=== PATIENT | female | born 1955 | race Hispanic/Latino ===

== ENCOUNTER 2018-04-11 20:06 | Inpatient (IN) | payer BC ==
[2018-04-11 20:24] VITALS: BMI 28.6
--- NOTE | 2018-04-11 20:38 | ED PDOC ---
Arrival/HPI - General Chief Complaint: Lower Extremity Problem/Injury Time Seen by Provider: 04/11/18 20:09 Historian: Patient - History of Present Illness Narrative History of Present Illness (Text): 04/11/18 20:37 Luz Elena Huerta is a 63 year old female, whose past medical history includes breast cancer s/p right breast mastectomy and PE, who presents to the ED complaining of right lower extremity swelling. Patient reports she recently had US of Duplex Lower Extremities performed earlier today, ordered by her canal driver for right lower extremity swelling she developed and noted to have an extensive right lower extremity DVT. Patient was advised to come to the ED for further evaluation. Patient states she is still experiencing right lower extremity swelling with some calf/posterior thigh pain. Patient denies any f ever, chills, chest pain, shortness of breath, back pain, headache, dizziness, or any other complaints. Patient has a family history of factor 5 leiden in her father and sister. Tenter: Dr. Landry Symptom Onset: Gradual Symptom Course: Unchanged Activities at Onset: Light Context: Home Past Medical History - Provider Review Nursing Documentation Reviewed: Yes - Infectious Disease Hx of Infectious Diseases: None - Reproductive Menopause: Yes - Cardiac Hx Pacemaker: No - Pulmonary Hx Sleep Apnea: Yes - Neurological Hx Paralysis: No - Hematological/Oncological Hx Blood Transfusions: No - Musculoskeletal/Rheumatological Hx Musculoskeletal Disorders: No - Gastrointestinal Hx Gastroesophageal Reflux: Yes - Psychiatric Hx Depression: Yes Hx Emotional Abuse: No Hx Physical Abuse: No Hx Substance Use: No - Surgical History Hx Mastectomy: Yes (right) Hx Tonsillectomy: Yes - Anesthesia Hx Anesthesia: Yes Hx Anesthesia Reactions: Yes (ITCHING AFTER MASTECTOMY) Hx Malignant Hyperthermia: No - Suicidal Assessment Feels Threatened In Home Enviroment: No Family/Social History - Physician Review Nursing Documentation Reviewed: Yes Family/Social History: Blood Clots Smoking Status: Former Smoker Hx Alcohol Use: Yes Frequency of alcohol use: Socially Hx Substance Use: No Allergies/Home Meds Allergies/Adverse Reactions: Allergies almonds Allergy (Uncoded 04/11/18 20:23) ITCHING Home Medications: Home Meds Medication Instructions Recorded Confirmed Escitalopram [Lexapro] 20 mg PO DAILY 02/27/14 04/12/18 Omeprazole 40 mg PO DAILY 02/27/14 04/11/18 Cholecalciferol [Vitamin D 1000 IU] 1,000 intlu PO DAILY 04/12/18 04/12/18 Review of Systems - Physician Review All systems were reviewed & negative as marked: Yes - Review of Systems Constitutional: Normal. absent: Fevers Eyes: Normal ENT: Normal Respiratory: Normal. absent: SOB, Cough Cardiovascular: Calf Pain. absent: Chest Pain Gastrointestinal: Normal. absent: Abdominal Pain, Diarrhea, Nausea, Vomiting Genitourinary Female: Normal. absent: Dysuria, Frequency, Hematuria, Urine Output Changes Musculoskeletal: Other (+right lower extremity swelling). absent: Back Pain, Neck Pain Skin: Normal. absent: Rash Neurological: Normal. absent: Headache, Dizziness Endocrine: Normal Hemo/Lymphatic: Normal Psychiatric: Normal Physical Exam Vital Signs Reviewed: Yes Vital Signs Temp Pulse Resp BP Pulse Ox 04/11/18 20:24 98.2 F 87 18 119/72 97 Temperature: Afebrile Blood Pressure: Normal Pulse: Regular Respiratory Rate: Normal Appearance: Positive for: Well-Appearing, Non-Toxic, Comfortable Pain Distress: None Mental Status: Positive for: Alert and Oriented X 3 - Systems Exam Head: Present: Atraumatic, Normocephalic Pupils: Present: PERRL Extroacular Muscles: Present: EOMI Conjunctiva: Present: Normal Mouth: Present: Moist Mucous Membranes Neck: Present: Normal Range of Motion Respiratory/Chest: Present: Clear to Auscultation, Good Air Exchange. No: Respiratory Distress, Accessory Muscle Use Cardiovascular: Present: Regular Rate and Rhythm, Normal S1, S2. No: Murmurs Abdomen: No: Tenderness, Distention, Peritoneal Signs Back: Present: Normal Inspection Upper Extremity: Present: Normal Inspection. No: Cyanosis, Edema Lower Extremity: Present: Normal ROM, Laura's Sign (RLE Laura's sign), Swelling (Swelling to RLE), Neurovascularly Intact. No: Edema, Erythema, Deformity, T emperature Abnormalties Neurological: Present: GCS=15, CN II-XII Intact, Speech Normal Skin: Present: Warm, Dry, Normal Color. No: Rashes Psychiatric: Present: Alert, Oriented x 3, Normal Insight, Normal Concentration Medical Decision Making ED Course and Treatment: 04/11/18 20:37 Impression: 63 year old female complaining of right lower extremity swelling with some right calf/posterior thigh pain. Pt had US Duplex Lower Extremities positive for right DVT earlier today. Plan: -- CT Chest, Abdomen, and Pelvis with IV contrast -- US Pelvis -- EKG -- Labs, troponin -- Heparin -- Reassess and disposition. Progress Notes: Case discussed with Dr. Landry, who is aware and agrees with plan. Requests pt be admitted and receive Heparin. Pt will be admitted to [facility] for DVT under Dr. Lantigua's service. 04/11/18 22:36 Reviewed EKG, NSR at 77 bpm. Non-specific T wave changes. 04/12/18 01:06 CTA Chest: Bilateral lower lobe segmental branches pulmonary emboli. Normal enhancement of the main pulmonary artery and right and left pulmonary arteries. Normal enhancement of the remaining bilateral peripheral pulmonary arteries. There is no other demonstrated pulmonary embolism. Normal thoracic aorta and visualized great vessels. There is no demonstrated aortic dissection. Normal heart and pericardium. Normal mediastinum. Normal hilar regions. Normal visualized trachea and bronchi. The lungs are well expanded. Normal pulmonary parenchyma. Normal pleura. Normal chest wall structures. Normal osseous structures. Normal visualized upper abdomen. Right breast prosthesis is noted. IMPRESSION: Bilateral lower lobe segmental branches pulmonary emboli. Electronically signed on Apr 12, 2018 1:00:33 AM EST by: Adan Max M.D., Certified by PETRONA, SABRINA, Neuroradiology 04/12/18 01:19 CT Abdomen and Pelvis: The liver contains a few scattered well-defined hypodense, probably benign lesions with the largest measuring 1.3 cm. There is no intra or extrahepatic biliary ductal dilatation. The spleen is normal. The gallbladder is within normal limits. The pancreas is of normal contour and attenuation characteristics. There is no evidence of adrenal mass. Both kidneys demonstrate prompt and equal nephrograms. The kidneys are normal in size, shape and configuration. There is no evidence of renal or ureteral mass. No renal or ureteral calculi are identified. There is no hydroureter or hydronephrosis. No evidence for appendicitis. There is no bowel wall thickening. No evidence for small or large bowel obstruction. There is no evidence of abdominal ascites or lymphadenopathy. Uncomplicated colonic diverticulosis. There is no evidence of intrinsic or extrinsic bladder mass. There is no pelvic ascites or lymphadenopathy. Intrauterine device is noted. 2.5 cm calcified uterine fibroid is seen. Images of the lung bases show no evidence of pleural or parenchymal mass. There are no pleural effusions. The bony structures are free of lytic or blastic lesions. Fat containing umbilical hernia without incarceration. IMPRESSION: No evidence of acute abdominal or pelvic pathology. Electronically signed on Apr 12, 2018 1:16:30 AM EST by: Adan Max M.D., Certified by ABR, MSK, Neuroradiology - Lab Interpretations I have reviewed the lab results: Yes - RAD Interpretation Radiology Orders: 04/11/18 20:33 CHEST,ABD,PEL W/IV CONT ONLY [CT] Stat Pelvis [PELVIS ULTRASOUND] [US] Routine Puppet Master: Radiologist - EKG Interpretation Interpreted by ED Physician: Yes Type: 12 lead EKG - Medication Orders Current Medication Orders: Heparin Sodium/Sodium Chloride (Heparin 76923 Units/250ml 1/2 Normal Saline) 25,000 units in 250 mls @ 14.941 mls/hr IV .[id number] PRN; Protocol PRN Reason: ADJUST RATE PER PROTOCOL Discontinued Medications Heparin Sodium (Porcine) (Heparin) 6,600 units 80 units/kg (6600 units) IV ONCE ONE; Protocol Stop: 04/11/18 20:27 - Scribe Statement The provider has reviewed the documentation as recorded by the Scribe Aure Ram All medical record entries made by the Scribe were at my direction and personally dictated by me. I have reviewed the chart and agree that the record accurately reflects my personal performance of the history, physical exam, medical decision making, and the department course for this patient. I have also personally directed, reviewed, and agree with the discharge instructions and disposition. Disposition/Present on Arrival - Present on Arrival Any Indicators Present on Arrival: No History of DVT/PE: No History of Uncontrolled Diabetes: No Urinary Catheter: No History of Decub. Ulcer: No History Surgical Site Infection Following: None - Disposition Have Diagnosis and Disposition been Completed?: Yes Diagnosis: Bilateral pulmonary embolism, Deep vein blood clot of right lower extremity Disposition: HOSPITALIZED Disposition Time: 20:40 Condition: FAIR
[2018-04-11 21:08] LABS: ALB/GLOB RATIO 1.3 (1.1-1.8); ALBUMIN 4.1 g/dL (3.0-4.8); ALT/SGPT 33 U/L (7-56); AST/SGOT 29 U/L (14-36); BLOOD UREA NITROGEN 13 mg/dL (7-21); CALCIUM 9.3 mg/dL (8.4-10.5); GFR NON-AFRICAN AMERICAN > 60
[2018-04-11 21:12] LABS: INR 1.17; PARTIAL THROMBOPLASTIN TIME 25.8 Seconds (25.1-36.5); PROTHROMBIN TIME 13.4 SECONDS (9.4-12.5)
[2018-04-11 21:15] LABS: BASO # 0.05 K/mm3 (0.0-2.0); BASO % 0.7 % (0.0-3.0); EOS # 0.4 (0.0-0.7); EOS % 5.9 % (1.5-5.0); GRAN # 4.7 (1.4-6.5); GRAN % 64.5 % (50.0-68.0); HEMOGLOBIN 13.7 g/dL (12.0-16.0); LYMPH # 1.5 (1.2-3.4); LYMPH % 20.5 % (22.0-35.0); MEAN CELL VOLUME 91.1 fl (80.0-105.0); MEAN CORPUSCULAR HEMOGLOBIN 31.3 pg (25.0-35.0); MEAN CORPUSCULAR HGB CONC 34.3 g/dl (31.0-37.0); MEAN PLATELET VOLUME 9.9 fl (7.0-11.0); MONO # 0.6 (0.1-0.6); MONO % 8.4 % (1.0-6.0); RBC 4.38 10^6/uL (3.5-6.1); RED CELL DISTRIBUTION WIDTH 12.8 % (11.5-14.5); WHITE BLOOD COUNT 7.3 10^3/uL (4.5-11.0)
[2018-04-11 21:20] LABS: TROPONIN I < 0.01 ng/mL
[2018-04-11] MEDS: Heparin25000 units/250ml 1/2NS 25,000 UNITS/250 ML BAG IV PRN (21:47)
[2018-04-11 23:56] LABS: URINE BILIRUBIN NEGATIVE (NEGATIVE); URINE BLOOD NEGATIVE (NEGATIVE); URINE GLUCOSE (UA) NEGATIVE (NEGATIVE); URINE LEUKOCYTE ESTERASE TRACE Leu/uL (NEGATIVE); URINE PROTEIN NEGATIVE mg/dL (<30 mg/dL); URINE UROBILINOGEN 0.2 E.U./dL (<1 E.U./dL)
[2018-04-12 00:09] LABS: URINE APPEARANCE SL CLOUDY (CLEAR); URINE COLOR YELLOW (YELLOW)
[2018-04-12 01:11] LABS: URINE RBC NEGATIVE /hpf (0-2); URINE WBC 0 - 2 /hpf (0-6)
[2018-04-12] MEDS ORDERED: Influenza Vaccine 60 mcg/0.5 mL SYR (4YR UP) IM ONE (01:11)
[2018-04-12] MEDS ORDERED: Pneumococcal 23-Valent Vaccine IM ONE (01:11)
[2018-04-12 01:12] LABS: URINE BACTERIA FEW (NEG)
--- NOTE | 2018-04-12 03:41 | CP.PCM.CON ---
<Eric Borrero - Last Filed: 04/12/18 08:26> History of Present Illness - History of Present Illness History of Present Illness: Eric Borrero PGY-1 ICU Consult Note for Dr. Ramsey: Pt is a 63 yo F with pmhx of breast cancer s/p right breast mastectomy, DVTs and PE, who presents to the ED complaining of right lower extremity swelling. ICU is consulted for close management of PE found on CT. Pt reports she recently had Duplex US of LE performed earlier today, at her hematologists clinic for right lower extremity swelling she developed. She was noted to have an extensive right lower extremity DVT. Patient was advised to come to the ED for further evaluation. Patient states she is still experiencing right lower extremity swelling with some calf/posterior thigh pain. She states that she noticed this 2 days ago and noticed that her R leg had looked more swollen. 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 Pt also admits to a family hx of Factor V Lieden in her father and sister, but pt states that she has tested negative in the past for it. Pt at this time states that she has no acute complaints, or pain and is only concerned about the finding of blood clots in her lungs. Pt denies any fever, chills, chest pain, palpitations pleuritic chest pain, shortness of breath, dyspnea on exertion, back pain, headache, lightheadedness, dizziness, weakness, numbness, tingling, dysuria, heamturia, n/v, constipation or diarrhea. Pmhx: breast cancer s/p right breast mastectomy, DVTs and PE Pshx: mastectomy, tonsillectomy Meds: Lexepro 20 QD, Protonix 40 All: NKDA Soc: Quit smoking 30 years ago, social etoh use, denies illicit drug use Fam: Mom: breast ca, Sister: Breast ca, Factor V lieden Dad: Factor V lieden Review of Systems - Review of Systems Review of Systems: 12 point ROS reviewed and negative except for noted in HPI above. Past Patient History - Infectious Disease Hx of Infectious Diseases: None - Past Social History Smoking Status: Former Smoker - CARDIAC Hx Pacemaker: No - PULMONARY Hx Sleep Apnea: Yes - NEUROLOGICAL Hx Paralysis: No - HEMATOLOGICAL/ONCOLOGICAL Hx Blood Transfusions: No - MUSCULOSKELETAL/RHEUMATOLOGICAL Hx Musculoskeletal Disorders: No - GASTROINTESTINAL Hx Gastroesophageal Reflux: Yes - PSYCHIATRIC Hx Depression: Yes Hx Emotional Abuse: No Hx Physical Abuse: No Hx Substance Use: No - SURGICAL HISTORY Hx Mastectomy: Yes (right) Hx Tonsillectomy: Yes - ANESTHESIA Hx Anesthesia: Yes Hx Anesthesia Reactions: Yes (ITCHING AFTER MASTECTOMY) Hx Malignant Hyperthermia: No Meds Allergies/Adverse Reactions: Allergies Allergy/AdvReac Type Severity Reaction Status Date / Time almonds Allergy ITCHING Uncoded 04/11/18 20:23 - Medications Medications: Current Medications Acetaminophen (Tylenol 325mg Tab) 650 mg PO Q4H PRN PRN Reason: Pain, Mild (1-3) Heparin Sodium/Sodium Chloride (Heparin 61186 Units/250ml 1/2 Normal Saline) 25,000 units in 250 mls @ 14.941 mls/hr IV .[id number] PRN; Protocol PRN Reason: ADJUST RATE PER PROTOCOL Last Admin: 04/11/18 21:47 Dose: 18 units/kg/hr, 14.941 mls/hr Physical Exam - Constitutional Appears: Well, Non-toxic, No Acute Distress - Head Exam Head Exam: ATRAUMATIC, NORMAL INSPECTION, NORMOCEPHALIC - Eye Exam Eye Exam: EOMI, Normal appearance Pupil Exam: NORMAL ACCOMODATION - Respiratory Exam Respiratory Exam: Clear to Auscultation Bilateral, NORMAL BREATHING PATTERN. absent: Accessory Muscle Use, Decreased Breath Sounds, Rales, Rhonchi, Wheezes, Respiratory Distress, Stridor - Cardiovascular Exam Cardiovascular Exam: RRR, +S1, +S2. absent: Gallop, Rubs, Systolic Murmur - GI/Abdominal Exam GI & Abdominal Exam: Normal Bowel Sounds, Soft. absent: Tenderness - Extremities Exam Extremities exam: Positive for: normal inspection. Negative for: calf tenderness, tenderness - Back Exam Back exam: NORMAL INSPECTION. absent: CVA tenderness (L), CVA tenderness (R) - Neurological Exam Neurological exam: Alert, Oriented x3 - Psychiatric Exam Psychiatric exam: Normal Affect, Normal Mood - Skin Skin Exam: Dry, Intact, Normal Color, Warm Results - Vital Signs Recent Vital Signs: Last Vital Signs Temp 98.5 F 04/12/18 00:53 Pulse 72 04/12/18 00:53 Resp 20 04/12/18 00:53 BP 107/47 L 04/12/18 00:53 Pulse Ox 98 04/12/18 01:10 - Labs Result Diagrams: 04/11/18 20:51 04/11/18 20:51 Labs: Laboratory Results - last 24 hr 04/11/18 04/11/18 04/11/18 20:51 20:51 20:51 WBC 7.3 RBC 4.38 Hgb 13.7 Hct 39.9 MCV 91.1 MCH 31.3 MCHC 34.3 RDW 12.8 Plt Count 257 MPV 9.9 Gran % 64.5 Lymph % (Auto) 20.5 L [place] % (Auto) 8.4 H Eos % (Auto) 5.9 H Baso % (Auto) 0.7 Gran # 4.70 Lymph # (Auto) 1.5 [place] # (Auto) 0.6 Eos # (Auto) 0.4 Baso # (Auto) 0.05 PT 13.4 H INR 1.17 APTT 25.8 Sodium 136 Potassium 3.7 Chloride 103 Carbon Dioxide 23 Anion Gap 14 BUN 13 Creatinine 0.9 Est GFR ( Amer) > 60 Est GFR (Non-Af Amer) > 60 Random Glucose 139 H Calcium 9.3 Total Bilirubin 0.7 AST 29 ALT 33 Alkaline Phosphatase 69 Troponin I < 0.01 Total Protein 7.2 Albumin 4.1 Globulin 3.2 Albumin/Globulin Ratio 1.3 Urine Color Urine Appearance Urine pH Ur Specific [place] Urine Protein Urine Glucose (UA) Urine Ketones Urine Blood Urine Nitrate Urine Bilirubin Urine Urobilinogen Ur Leukocyte Esterase Urine RBC Urine WBC Ur Epithelial Cells Urine Bacteria Urine Other 04/11/18 22:59 WBC RBC Hgb Hct MCV MCH MCHC RDW Plt Count MPV Gran % Lymph % (Auto) [place] % (Auto) Eos % (Auto) Baso % (Auto) Gran # Lymph # (Auto) [place] # (Auto) Eos # (Auto) Baso # (Auto) PT INR APTT Sodium Potassium Chloride Carbon Dioxide Anion Gap BUN Creatinine Est GFR ( Amer) Est GFR (Non-Af Amer) Random Glucose Calcium Total Bilirubin AST ALT Alkaline Phosphatase Troponin I Total Protein Albumin Globulin Albumin/Globulin Ratio Urine Color Yellow Urine Appearance Sl cloudy Urine pH 6.0 Ur Specific [place] 1.025 Urine Protein Negative Urine Glucose (UA) Negative Urine Ketones Negative Urine Blood Negative Urine Nitrate Negative Urine Bilirubin Negative Urine Urobilinogen 0.2 Ur Leukocyte Esterase Trace H Urine RBC Negative Urine WBC 0 - 2 Ur Epithelial Cells 6 - 8 Urine Bacteria Few Urine Other Mucus Assessment & Plan - Assessment and Plan (Free Text) Assessment: t is a 63 yo F with pmhx of breast cancer s/p right breast mastectomy, DVTs and PE. Noted to have a new PE on CT, f/u official read. Heparin drip started and transfered to ICU for close monitoring. Plan: 1. Provoked DVT 2/2 hx of breast ca undergoing treatment - Pt is clinically asymptomatic at this time - Started on Heparin drip - f/u factor V leiden - Will bridge to PO meds - Will continue to monitor for signs of bleeding - Continue to monitor pts presentation. 2. Hx of breast ca s/p mastectomy: - Heme/onc on board 3. Ppx: - GI: omeprazole <Edmond Ramsey - Last Filed: 04/13/18 20:40> Meds - Medications Medications: Current Medications Acetaminophen (Tylenol 325mg Tab) 650 mg PO Q4H PRN PRN Reason: Pain, Mild (1-3) Albuterol/Ipratropium (Duoneb 3 Mg/0.5 Mg (3 Ml) Ud) 3 ml IH [id number] PRN PRN Reason: Cough and congestion Anastrozole (Arimidex 1 Mg Tab) 1 mg PO DAILY [facility] Last Admin: 04/13/18 09:41 Dose: 1 mg Benzocaine/Menthol (Cepacol Sore Throat) 1 charline MT Q2H PRN PRN Reason: Cough Benzonatate (Tessalon Perles) 200 mg PO TID [facility] Last Admin: 04/13/18 17:15 Dose: 200 mg Escitalopram Oxalate (Lexapro) 10 mg PO DAILY [facility] Last Admin: 04/13/18 09:49 Dose: 10 mg Guaifenesin (Robitussin) 100 mg PO Q4H PRN PRN Reason: Cough Last Admin: 04/13/18 02:32 Dose: 100 mg Heparin Sodium/Sodium Chloride (Heparin 01246 Units/250ml 1/2 Normal Saline) 25,000 units in 250 mls @ 14.941 mls/hr IV .[id number] PRN; Protocol PRN Reason: ADJUST RATE PER PROTOCOL Last Admin: 04/13/18 14:52 Dose: 16 units/kg/hr, 13.281 mls/hr Lamotrigine (Lamictal) 25 mg PO DAILY [facility] Last Admin: 04/13/18 10:21 Dose: Not Given Pantoprazole Sodium (Protonix Ec Tab) 40 mg PO 0600 [facility] Last Admin: 04/13/18 05:15 Dose: 40 mg Results - Vital Signs Recent Vital Signs: Last Vital Signs Temp 98.1 F 04/13/18 18:00 Pulse 77 04/13/18 18:00 Resp 20 04/13/18 18:00 BP 101/54 L 04/13/18 18:00 Pulse Ox 96 04/13/18 18:00 - Labs Result Diagrams: 04/13/18 05:20 04/13/18 05:20 Labs: Laboratory Results - last 24 hr 04/13/18 04/13/18 04/13/18 02:25 05:20 05:20 WBC 5.7 RBC 4.22 Hgb 13.1 Hct 38.9 MCV 92.2 MCH 31.0 MCHC 33.7 RDW 12.8 Plt Count 228 MPV 9.5 Gran % 54.1 Lymph % (Auto) 32.6 [place] % (Auto) 7.0 H Eos % (Auto) 5.6 H Baso % (Auto) 0.7 Gran # 3.07 Lymph # (Auto) 1.9 [place] # (Auto) 0.4 Eos # (Auto) 0.3 Baso # (Auto) 0.04 APTT 61.8 H Sodium 140 Potassium 4.0 Chloride 109 H Carbon Dioxide 28 Anion Gap 7 L BUN 12 Creatinine 0.8 Est GFR ( Amer) > 60 Est GFR (Non-Af Amer) > 60 Random Glucose 100 Calcium 8.9 Total Bilirubin 0.5 AST 22 ALT 31 Alkaline Phosphatase 64 Total Protein 6.3 Albumin 3.5 Globulin 2.8 Albumin/Globulin Ratio 1.2 Attending/Attestation - Attestation I have personally seen and examined this patient.: Yes I have fully participated in the care of the patient.: Yes I have reviewed all pertinent clinical information: Yes Notes (Text): 04/13/18 20:39 Patient was seen when she was in the ER. Agree with documentation by resident physician.
[2018-04-12] MEDS: Pantoprazole 40 mg EC Tab PO SCH (05:52)
[2018-04-12 06:52] LABS: BASO # 0.03 K/mm3 (0.0-2.0); BASO % 0.4 % (0.0-3.0); EOS # 0.4 (0.0-0.7); EOS % 6.3 % (1.5-5.0); GRAN # 3.78 (1.4-6.5); GRAN % 55.2 % (50.0-68.0); HEMOGLOBIN 12.3 g/dL (12.0-16.0); LYMPH # 2.1 (1.2-3.4); LYMPH % 30.7 % (22.0-35.0); MEAN CELL VOLUME 91.5 fl (80.0-105.0); MEAN CORPUSCULAR HEMOGLOBIN 30.6 pg (25.0-35.0); MEAN CORPUSCULAR HGB CONC 33.4 g/dl (31.0-37.0); MEAN PLATELET VOLUME 9.8 fl (7.0-11.0); MONO # 0.5 (0.1-0.6); MONO % 7.4 % (1.0-6.0); RBC 4.02 10^6/uL (3.5-6.1); RED CELL DISTRIBUTION WIDTH 12.9 % (11.5-14.5); WHITE BLOOD COUNT 6.9 10^3/uL (4.5-11.0)
[2018-04-12 07:50] LABS: ALB/GLOB RATIO 1.2 (1.1-1.8); ALBUMIN 3.2 g/dL (3.0-4.8); ALT/SGPT 30 U/L (7-56); AST/SGOT 21 U/L (14-36); BLOOD UREA NITROGEN 13 mg/dL (7-21); CALCIUM 8.4 mg/dL (8.4-10.5); GFR NON-AFRICAN AMERICAN > 60
--- NOTE | 2018-04-12 09:08 | CP.PCM.HP ---
History of Present Illness - History of Present Illness History of Present Illness: Rayshawn Marquez Internal Medicine Resident- H&P on Behalf of Heme/Onc Subjective: CC: Right lower extremity swelling HPI: Patient is a 63 year old female with a pmhx of breast cancer s/p right breast mastectomy, DVTs and PE who was admitted for evaluation and treatment of right lower extremity swelling. States the swelling began 3 days ago with no specific provoking event. Admits to localized discomfort in the aforementioned limb. Offers no new complaints at this time. Admits to baseline nonproductive cough. Denies fever, chills, chest pain, SOB, abdominal pain, nausea, vomiting, diarrhea, constipation, and urinary symptoms. 12 Point ROS negative except as indicated in HPI Pmhx: breast cancer s/p right breast mastectomy, DVTs and PE Pshx: mastectomy, tonsillectomy Meds: Lexepro 20 QD, Protonix 40 All: NKDA Social Hx: Quit smoking 30 years ago, social etoh use, denies illicit drug use Fam: Mom: breast ca, Sister: Breast ca, Factor V lieden Dad: Factor V lieden Physical Examination: - Constitutional Appears: Well, Non-toxic, No Acute Distress - Head Exam Head Exam: ATRAUMATIC, NORMAL INSPECTION, NORMOCEPHALIC - Eye Exam Eye Exam: EOMI, Normal appearance - Respiratory Exam Respiratory Exam: Clear to Auscultation Bilateral, NORMAL BREATHING PATTERN. absent: Accessory Muscle Use, Decreased Breath Sounds, Rales, Rhonchi, Wheezes, Respiratory Distress, Stridor - Cardiovascular Exam Cardiovascular Exam: RRR, +S1, +S2. absent: Gallop, Rubs, Systolic Murmur - GI/Abdominal Exam GI & Abdominal Exam: Normal Bowel Sounds, Soft. absent: Tenderness - Extremities Exam Extremities exam: Positive for: normal inspection. Negative for: calf tenderness, tenderness - Back Exam Back exam: NORMAL INSPECTION. absent: CVA tenderness (L), CVA tenderness (R) - Neurological Exam Neurological exam: Alert, Oriented x3 - Psychiatric Exam Psychiatric exam: Normal Affect, Normal Mood - Skin Skin Exam: Dry, Intact, Normal Color, Warm Assessment and Plan: Pt is a 63 yo F with pmhx of breast cancer s/p right breast mastectomy, DVTs and PE. Noted to have a new PE on CT, f/u official read. Heparin drip started and transferred to ICU for close monitoring. Provoked DVT - 2/2 hx of breast Cancer undergoing treatment - 04/11/2018 EKG, NSR at 77 bpm. Non-specific T wave changes - 04/12/2018 CT Abdomen and Pelvis No evidence of acute abdominal or pelvic pathology - 04/12/2018 CTA Chest Bilateral lower lobe segmental branches pulmonary emboli. - continue Heparin drip - f/u factor V Leiden Hx of breast ca s/p mastectomy: - continue home anastrazole 1mg PO Daily Atypical Cough - Pulmonology consulted- PE, potentially related to cough - GI consulted- hx of GERD, potentially related to cough Ppx: - GI: omeprazole - PPX: on heparin drip Patient case discussed with and plan approved by attending physician, Dr. Landry. Present on Admission - Present on Admission Any Indicators Present on Admission: Yes Past Patient History - Infectious Disease Hx of Infectious Diseases: None - Past Social History Smoking Status: Former Smoker - CARDIAC Hx Pacemaker: No - PULMONARY Hx Sleep Apnea: Yes - NEUROLOGICAL Hx Paralysis: No - HEMATOLOGICAL/ONCOLOGICAL Hx Blood Transfusions: No - MUSCULOSKELETAL/RHEUMATOLOGICAL Hx Musculoskeletal Disorders: No - GASTROINTESTINAL Hx Gastroesophageal Reflux: Yes - PSYCHIATRIC Hx Depression: Yes Hx Emotional Abuse: No Hx Physical Abuse: No Hx Substance Use: No - SURGICAL HISTORY Hx Mastectomy: Yes (right) Hx Tonsillectomy: Yes - ANESTHESIA Hx Anesthesia: Yes Hx Anesthesia Reactions: Yes (ITCHING AFTER MASTECTOMY) Hx Malignant Hyperthermia: No Meds Allergies/Adverse Reactions: Allergies Allergy/AdvReac Type Severity Reaction Status Date / Time almonds Allergy ITCHING Uncoded 04/11/18 20:23 Results - Vital Signs Recent Vital Signs: Last Vital Signs Temp 98.5 F 04/12/18 00:53 Pulse 68 04/12/18 08:50 Resp 39 H 04/12/18 08:50 BP 105/54 L 04/12/18 08:00 Pulse Ox 94 L 04/12/18 08:50 - Labs Result Diagrams: 04/12/18 06:30 04/12/18 06:30 Labs: Laboratory Results - last 24 hr 04/11/18 04/11/18 04/11/18 20:51 20:51 20:51 WBC 7.3 RBC 4.38 Hgb 13.7 Hct 39.9 MCV 91.1 MCH 31.3 MCHC 34.3 RDW 12.8 Plt Count 257 MPV 9.9 Gran % 64.5 Lymph % (Auto) 20.5 L [place] % (Auto) 8.4 H Eos % (Auto) 5.9 H Baso % (Auto) 0.7 Gran # 4.70 Lymph # (Auto) 1.5 [place] # (Auto) 0.6 Eos # (Auto) 0.4 Baso # (Auto) 0.05 PT 13.4 H INR 1.17 APTT 25.8 Sodium 136 Potassium 3.7 Chloride 103 Carbon Dioxide 23 Anion Gap 14 BUN 13 Creatinine 0.9 Est GFR ( Amer) > 60 Est GFR (Non-Af Amer) > 60 Random Glucose 139 H Calcium 9.3 Total Bilirubin 0.7 AST 29 ALT 33 Alkaline Phosphatase 69 Troponin I < 0.01 NT-Pro-B Natriuret Pep Total Protein 7.2 Albumin 4.1 Globulin 3.2 Albumin/Globulin Ratio 1.3 Urine Color Urine Appearance Urine pH Ur Specific [place] Urine Protein Urine Glucose (UA) Urine Ketones Urine Blood Urine Nitrate Urine Bilirubin Urine Urobilinogen Ur Leukocyte Esterase Urine RBC Urine WBC Ur Epithelial Cells Urine Bacteria Urine Other 04/11/18 04/12/18 04/12/18 22:59 04:42 06:30 WBC 6.9 RBC 4.02 Hgb 12.3 Hct 36.8 MCV 91.5 MCH 30.6 MCHC 33.4 RDW 12.9 Plt Count 227 MPV 9.8 Gran % 55.2 Lymph % (Auto) 30.7 [place] % (Auto) 7.4 H Eos % (Auto) 6.3 H Baso % (Auto) 0.4 Gran # 3.78 Lymph # (Auto) 2.1 [place] # (Auto) 0.5 Eos # (Auto) 0.4 Baso # (Auto) 0.03 PT INR APTT 87.2 H Sodium Potassium Chloride Carbon Dioxide Anion Gap BUN Creatinine Est GFR ( Amer) Est GFR (Non-Af Amer) Random Glucose Calcium Total Bilirubin AST ALT Alkaline Phosphatase Troponin I NT-Pro-B Natriuret Pep Total Protein Albumin Globulin Albumin/Globulin Ratio Urine Color Yellow Urine Appearance Sl cloudy Urine pH 6.0 Ur Specific [place] 1.025 Urine Protein Negative Urine Glucose (UA) Negative Urine Ketones Negative Urine Blood Negative Urine Nitrate Negative Urine Bilirubin Negative Urine Urobilinogen 0.2 Ur Leukocyte Esterase Trace H Urine RBC Negative Urine WBC 0 - 2 Ur Epithelial Cells 6 - 8 Urine Bacteria Few Urine Other Mucus 04/12/18 04/12/18 06:30 08:17 WBC RBC Hgb Hct MCV MCH MCHC RDW Plt Count MPV Gran % Lymph % (Auto) [place] % (Auto) Eos % (Auto) Baso % (Auto) Gran # Lymph # (Auto) [place] # (Auto) Eos # (Auto) Baso # (Auto) PT INR APTT Sodium 135 Potassium 3.5 L Chloride 104 Carbon Dioxide 23 Anion Gap 11 BUN 13 Creatinine 0.8 Est GFR ( Amer) > 60 Est GFR (Non-Af Amer) > 60 Random Glucose 121 H Calcium 8.4 Total Bilirubin 0.5 AST 21 ALT 30 Alkaline Phosphatase 55 Troponin I NT-Pro-B Natriuret Pep 33.4 Total Protein 6.0 Albumin 3.2 Globulin 2.8 Albumin/Globulin Ratio 1.2 Urine Color Urine Appearance Urine pH Ur Specific [place] Urine Protein Urine Glucose (UA) Urine Ketones Urine Blood Urine Nitrate Urine Bilirubin Urine Urobilinogen Ur Leukocyte Esterase Urine RBC Urine WBC Ur Epithelial Cells Urine Bacteria Urine Other
--- NOTE | 2018-04-12 09:29 | CT ---
Date of service: 04/11/2018 PROCEDURE: CT Chest with contrast (Pulmonary Angiogram) HISTORY: dvt leg COMPARISON: 11/22/2017. CT thorax TECHNIQUE: Axial computed tomography images were obtained of the chest in the pulmonary arterial phase of enhancement. Coronal and sagittal reformatted images were created and reviewed. Intravenous contrast dose: 100 cc Visipaque 320. Mean Hounsfield value in the main pulmonary artery: 317.35 Radiation dose: Total exam DLP = 480.25 mGy-cm. This CT exam was performed using one or more of the following dose reduction techniques: Automated exposure control, adjustment of the mA and/or kV according to patient size, and/or use of iterative reconstruction technique. FINDINGS: PULMONARY ARTERIES: Lower lobe pulmonary emboli bilaterally. In addition, there is more central emboli distal aspect of the left main pulmonary artery which extends into proximal branches of upper and lower lobes. Similar distribution of embolize seen on the right. AORTA: No acute findings. No thoracic aortic aneurysm. No atherosclerotic calcification or mural plaque present. LUNGS: Unremarkable. No nodule, mass or pulmonary consolidation. PLEURAL SPACES: Unremarkable. No effusion or pneumothorax. HEART: Unremarkable. No cardiomegaly. No significant pericardial effusion. LYMPH NODES: No lymphadenopathy. BONES, CHEST WALL: Unremarkable. No fracture or destructive lesion hemangioma T7 vertebral body. OTHER FINDINGS: Upper abdomen: Stable hepatic cysts. Stable appearance of right breast prosthesis and right axillary surgical clips. IMPRESSION: Positive examination for acute pulmonary emboli bilaterally. Additional benign and/or incidental findings described above. Concordant results (preliminary interpretation) provided by [facility]. Procedure Completed: 23:37. Preliminary Report: Dictated and Authenticated: 01:00. Final Interpretation: 09:23. April 12, 2018
--- NOTE | 2018-04-12 09:41 | CP.CCUPN ---
<Bo Feldman - Last Filed: 04/12/18 12:49> CCU Subjective - Physician Review Subjective (Free Text): Patient seen and examined at bedside. She is alert and oriented, has no complaints. No acute events overnight. Right leg swelling is getting better. Denied SOB, chest pain, palpitations, leg pain, fever, chills. CCU Objective - Vital Signs / Intake & Output Vital Signs (Last 4 hours): Vital Signs Pulse Resp BP Pulse Ox 04/12/18 08:50 68 39 H 94 L 04/12/18 08:40 72 29 H 95 04/12/18 08:30 59 L 16 94 L 04/12/18 08:20 67 18 94 L 04/12/18 08:10 66 16 92 L 04/12/18 08:00 105/54 L 04/12/18 07:59 65 17 94 L 04/12/18 07:54 72 14 112/65 96 04/12/18 07:50 68 24 94 L 04/12/18 07:49 68 22 104/60 95 04/12/18 07:48 75 40 H 74/27 L 95 04/12/18 07:40 61 14 91 L 04/12/18 07:30 68 13 91 L 04/12/18 07:20 68 14 91 L 04/12/18 07:10 68 13 92 L 04/12/18 07:00 69 78/56 L 91 L 04/12/18 06:50 66 13 93 L 04/12/18 06:40 79 95 04/12/18 06:30 72 14 91 L 04/12/18 06:20 68 93 L 04/12/18 06:17 70 16 80/45 L 93 L 04/12/18 06:10 68 14 94 L 04/12/18 06:00 68 14 76/42 L 92 L 04/12/18 05:50 66 13 94 L 04/12/18 05:40 68 16 91 L 04/12/18 05:39 68 113/49 L Intake and Output (Last 8hrs): Intake & Output 04/11/18 04/12/18 04/12/18 22:59 06:59 14:59 Intake Total 470 Output Total 400 Balance 70 Weight 183 lb Intake: IV 270 heparin 150 Oral 200 Output: Urine 400 Urine, Voided 400 - Physical Exam Head: Positive for: Atraumatic, Normocephalic Pupils: Positive for: PERRL Extroacular Muscles: Positive for: EOMI Conjunctiva: Positive for: Normal Mouth: Positive for: Moist Mucous Membranes Neck: Positive for: Normal Range of Motion Respiratory/Chest: Positive for: Clear to Auscultation, Good Air Exchange. Negative for: Respiratory Distress, Accessory Muscle Use Cardiovascular: Positive for: Regular Rate and Rhythm, Normal S1, S2. Negative for: Murmurs Abdomen: Negative for: Tenderness, Distention, Peritoneal Signs Back: Positive for: Normal Inspection Upper Extremity: Positive for: Normal Inspection. Negative for: Cyanosis, Edema Lower Extremity: Positive for: Normal ROM, Laura's Sign (RLE Laura's sign), Swelling (Swelling to RLE. improving), Neurovascularly Intact. Negative for: Edema, Erythema, Deformity, Temperature Abnormalties Neurological: Positive for: GCS=15, CN II-XII Intact, Speech Normal Skin: Positive for: Warm, Dry, Normal Color. Negative for: Rashes Psychiatric: Positive for: Alert, Oriented x 3, Normal Insight, Normal Concentration - Medications Active Medications: Active Medications Generic Name Dose Route Start Last Admin Trade Name Freq PRN Reason Stop Dose Admin Acetaminophen 650 mg 04/12/18 00:48 Tylenol 325mg Tab PO Q4H PRN Pain, Mild (1-3) Escitalopram Oxalate 10 mg 04/12/18 10:00 Lexapro PO DAILY ARACELI Heparin Sodium/Sodium Chloride 25,000 units in 250 mls @ 14.941 mls/hr 1 06/11/17 20:26 04/12/18 06:00 Heparin 97714 Units/250ml 1/2 Normal Saline IV 16 units/kg/hr .[id number] PRN 13.281 mls/hr ADJUST RATE PER PROTOCOL Titration Protocol 18 UNITS/KG/HR Lamotrigine 25 mg 04/12/18 10:00 Lamictal PO DAILY ARACELI Pantoprazole Sodium 40 mg 04/12/18 06:00 04/12/18 05:52 Protonix Ec Tab PO 40 mg 0600 ARACELI Administration - Patient Studies Lab Studies: Lab Studies 04/12/18 04/12/18 04/12/18 Range/Units 08:17 06:30 06:30 WBC 6.9 (4.5-11.0) 10^3/uL RBC 4.02 (3.5-6.1) 10^6/uL Hgb 12.3 (12.0-16.0) g/dL Hct 36.8 (36.0-48.0) % MCV 91.5 (80.0-105.0) fl MCH 30.6 (25.0-35.0) pg MCHC 33.4 (31.0-37.0) g/dl RDW 12.9 (11.5-14.5) % Plt Count 227 (120.0-450.0) 10^3/uL MPV 9.8 (7.0-11.0) fl Gran % 55.2 (50.0-68.0) % Lymph % (Auto) 30.7 (22.0-35.0) % Wirt % (Auto) 7.4 H (1.0-6.0) % Eos % (Auto) 6.3 H (1.5-5.0) % Baso % (Auto) 0.4 (0.0-3.0) % Gran # 3.78 (1.4-6.5) Lymph # (Auto) 2.1 (1.2-3.4) Wirt # (Auto) 0.5 (0.1-0.6) Eos # (Auto) 0.4 (0.0-0.7) Baso # (Auto) 0.03 (0.0-2.0) K/mm3 PT (9.4-12.5) SECONDS INR APTT (25.1-36.5) Seconds Sodium 135 (132-148) mmol/L Potassium 3.5 L (3.6-5.0) mmol/L Chloride 104 (98-107) mmol/L Carbon Dioxide 23 (21-33) mmol/L Anion Gap 11 (10-20) BUN 13 (7-21) mg/dL Creatinine 0.8 (0.7-1.2) mg/dl Est GFR ( Amer) > 60 Est GFR (Non-Af Amer) > 60 Random Glucose 121 H (70-110) mg/dL Calcium 8.4 (8.4-10.5) mg/dL Total Bilirubin 0.5 (0.2-1.3) mg/dL AST 21 (14-36) U/L ALT 30 (7-56) U/L Alkaline Phosphatase 55 (38-126) U/L Troponin I ng/mL NT-Pro-B Natriuret Pep 33.4 (0-450) pg/mL Total Protein 6.0 (5.8-8.3) g/dL Albumin 3.2 (3.0-4.8) g/dL Globulin 2.8 gm/dL Albumin/Globulin Ratio 1.2 (1.1-1.8) Urine Color (YELLOW) Urine Appearance (CLEAR) Urine pH (4.7-8.0) Ur Specific [place] (1.005-1.035) Urine Protein (<30 mg/dL) mg/dL Urine Glucose (UA) (NEGATIVE) mg/dL Urine Ketones (NEGATIVE) mg/dL Urine Blood (NEGATIVE) Urine Nitrate (NEGATIVE) Urine Bilirubin (NEGATIVE) Urine Urobilinogen (<1 E.U./dL) E.U./dL Ur Leukocyte Esterase (NEGATIVE) Yusra/uL Urine RBC (0-2) /hpf Urine WBC (0-6) /hpf Ur Epithelial Cells (0-5) /hpf Urine Bacteria (NEG) Urine Other 04/12/18 04/11/18 04/11/18 Range/Units 04:42 22:59 20:51 WBC (4.5-11.0) 10^3/uL RBC (3.5-6.1) 10^6/uL Hgb (12.0-16.0) g/dL Hct (36.0-48.0) % MCV (80.0-105.0) fl MCH (25.0-35.0) pg MCHC (31.0-37.0) g/dl RDW (11.5-14.5) % Plt Count (120.0-450.0) 10^3/uL MPV (7.0-11.0) fl Gran % (50.0-68.0) % Lymph % (Auto) (22.0-35.0) % Wirt % (Auto) (1.0-6.0) % Eos % (Auto) (1.5-5.0) % Baso % (Auto) (0.0-3.0) % Gran # (1.4-6.5) Lymph # (Auto) (1.2-3.4) Wirt # (Auto) (0.1-0.6) Eos # (Auto) (0.0-0.7) Baso # (Auto) (0.0-2.0) K/mm3 PT (9.4-12.5) SECONDS INR APTT 87.2 H (25.1-36.5) Seconds Sodium 136 (132-148) mmol/L Potassium 3.7 (3.6-5.0) mmol/L Chloride 103 (98-107) mmol/L Carbon Dioxide 23 (21-33) mmol/L Anion Gap 14 (10-20) BUN 13 (7-21) mg/dL Creatinine 0.9 (0.7-1.2) mg/dl Est GFR ( Amer) > 60 Est GFR (Non-Af Amer) > 60 Random Glucose 139 H (70-110) mg/dL Calcium 9.3 (8.4-10.5) mg/dL Total Bilirubin 0.7 (0.2-1.3) mg/dL AST 29 (14-36) U/L ALT 33 (7-56) U/L Alkaline Phosphatase 69 (38-126) U/L Troponin I < 0.01 ng/mL NT-Pro-B Natriuret Pep (0-450) pg/mL Total Protein 7.2 (5.8-8.3) g/dL Albumin 4.1 (3.0-4.8) g/dL Globulin 3.2 gm/dL Albumin/Globulin Ratio 1.3 (1.1-1.8) Urine Color Yellow (YELLOW) Urine Appearance Sl cloudy (CLEAR) Urine pH 6.0 (4.7-8.0) Ur Specific [place] 1.025 (1.005-1.035) Urine Protein Negative (<30 mg/dL) mg/dL Urine Glucose (UA) Negative (NEGATIVE) mg/dL Urine Ketones Negative (NEGATIVE) mg/dL Urine Blood Negative (NEGATIVE) Urine Nitrate Negative (NEGATIVE) Urine Bilirubin Negative (NEGATIVE) Urine Urobilinogen 0.2 (<1 E.U./dL) E.U./dL Ur Leukocyte Esterase Trace H (NEGATIVE) Yusra/uL Urine RBC Negative (0-2) /hpf Urine WBC 0 - 2 (0-6) /hpf Ur Epithelial Cells 6 - 8 (0-5) /hpf Urine Bacteria Few (NEG) Urine Other Mucus 04/11/18 04/11/18 Range/Units 20:51 20:51 WBC 7.3 (4.5-11.0) 10^3/uL RBC 4.38 (3.5-6.1) 10^6/uL Hgb 13.7 (12.0-16.0) g/dL Hct 39.9 (36.0-48.0) % MCV 91.1 (80.0-105.0) fl MCH 31.3 (25.0-35.0) pg MCHC 34.3 (31.0-37.0) g/dl RDW 12.8 (11.5-14.5) % Plt Count 257 (120.0-450.0) 10^3/uL MPV 9.9 (7.0-11.0) fl Gran % 64.5 (50.0-68.0) % Lymph % (Auto) 20.5 L (22.0-35.0) % Wirt % (Auto) 8.4 H (1.0-6.0) % Eos % (Auto) 5.9 H (1.5-5.0) % Baso % (Auto) 0.7 (0.0-3.0) % Gran # 4.70 (1.4-6.5) Lymph # (Auto) 1.5 (1.2-3.4) Wirt # (Auto) 0.6 (0.1-0.6) Eos # (Auto) 0.4 (0.0-0.7) Baso # (Auto) 0.05 (0.0-2.0) K/mm3 PT 13.4 H (9.4-12.5) SECONDS INR 1.17 APTT 25.8 (25.1-36.5) Seconds Sodium (132-148) mmol/L Potassium (3.6-5.0) mmol/L Chloride (98-107) mmol/L Carbon Dioxide (21-33) mmol/L Anion Gap (10-20) BUN (7-21) mg/dL Creatinine (0.7-1.2) mg/dl Est GFR ( Amer) Est GFR (Non-Af Amer) Random Glucose (70-110) mg/dL Calcium (8.4-10.5) mg/dL Total Bilirubin (0.2-1.3) mg/dL AST (14-36) U/L ALT (7-56) U/L Alkaline Phosphatase (38-126) U/L Troponin I ng/mL NT-Pro-B Natriuret Pep (0-450) pg/mL Total Protein (5.8-8.3) g/dL Albumin (3.0-4.8) g/dL Globulin gm/dL Albumin/Globulin Ratio (1.1-1.8) Urine Color (YELLOW) Urine Appearance (CLEAR) Urine pH (4.7-8.0) Ur Specific [place] (1.005-1.035) Urine Protein (<30 mg/dL) mg/dL Urine Glucose (UA) (NEGATIVE) mg/dL Urine Ketones (NEGATIVE) mg/dL Urine Blood (NEGATIVE) Urine Nitrate (NEGATIVE) Urine Bilirubin (NEGATIVE) Urine Urobilinogen (<1 E.U./dL) E.U./dL Ur Leukocyte Esterase (NEGATIVE) Yusra/uL Urine RBC (0-2) /hpf Urine WBC (0-6) /hpf Ur Epithelial Cells (0-5) /hpf Urine Bacteria (NEG) Urine Other Laboratory Results - last 24 hr 04/11/18 04/11/18 04/11/18 20:51 20:51 20:51 WBC 7.3 RBC 4.38 Hgb 13.7 Hct 39.9 MCV 91.1 MCH 31.3 MCHC 34.3 RDW 12.8 Plt Count 257 MPV 9.9 Gran % 64.5 Lymph % (Auto) 20.5 L Wirt % (Auto) 8.4 H Eos % (Auto) 5.9 H Baso % (Auto) 0.7 Gran # 4.70 Lymph # (Auto) 1.5 Wirt # (Auto) 0.6 Eos # (Auto) 0.4 Baso # (Auto) 0.05 PT 13.4 H INR 1.17 APTT 25.8 Sodium 136 Potassium 3.7 Chloride 103 Carbon Dioxide 23 Anion Gap 14 BUN 13 Creatinine 0.9 Est GFR ( Amer) > 60 Est GFR (Non-Af Amer) > 60 Random Glucose 139 H Calcium 9.3 Total Bilirubin 0.7 AST 29 ALT 33 Alkaline Phosphatase 69 Troponin I < 0.01 NT-Pro-B Natriuret Pep Total Protein 7.2 Albumin 4.1 Globulin 3.2 Albumin/Globulin Ratio 1.3 Urine Color Urine Appearance Urine pH Ur Specific [place] Urine Protein Urine Glucose (UA) Urine Ketones Urine Blood Urine Nitrate Urine Bilirubin Urine Urobilinogen Ur Leukocyte Esterase Urine RBC Urine WBC Ur Epithelial Cells Urine Bacteria Urine Other 04/11/18 04/12/18 04/12/18 22:59 04:42 06:30 WBC 6.9 RBC 4.02 Hgb 12.3 Hct 36.8 MCV 91.5 MCH 30.6 MCHC 33.4 RDW 12.9 Plt Count 227 MPV 9.8 Gran % 55.2 Lymph % (Auto) 30.7 Wirt % (Auto) 7.4 H Eos % (Auto) 6.3 H Baso % (Auto) 0.4 Gran # 3.78 Lymph # (Auto) 2.1 Wirt # (Auto) 0.5 Eos # (Auto) 0.4 Baso # (Auto) 0.03 PT INR APTT 87.2 H Sodium Potassium Chloride Carbon Dioxide Anion Gap BUN Creatinine Est GFR ( Amer) Est GFR (Non-Af Amer) Random Glucose Calcium Total Bilirubin AST ALT Alkaline Phosphatase Troponin I NT-Pro-B Natriuret Pep Total Protein Albumin Globulin Albumin/Globulin Ratio Urine Color Yellow Urine Appearance Sl cloudy Urine pH 6.0 Ur Specific [place] 1.025 Urine Protein Negative Urine Glucose (UA) Negative Urine Ketones Negative Urine Blood Negative Urine Nitrate Negative Urine Bilirubin Negative Urine Urobilinogen 0.2 Ur Leukocyte Esterase Trace H Urine RBC Negative Urine WBC 0 - 2 Ur Epithelial Cells 6 - 8 Urine Bacteria Few Urine Other Mucus 04/12/18 04/12/18 06:30 08:17 WBC RBC Hgb Hct MCV MCH MCHC RDW Plt Count MPV Gran % Lymph % (Auto) Wirt % (Auto) Eos % (Auto) Baso % (Auto) Gran # Lymph # (Auto) Wirt # (Auto) Eos # (Auto) Baso # (Auto) PT INR APTT Sodium 135 Potassium 3.5 L Chloride 104 Carbon Dioxide 23 Anion Gap 11 BUN 13 Creatinine 0.8 Est GFR ( Amer) > 60 Est GFR (Non-Af Amer) > 60 Random Glucose 121 H Calcium 8.4 Total Bilirubin 0.5 AST 21 ALT 30 Alkaline Phosphatase 55 Troponin I NT-Pro-B Natriuret Pep 33.4 Total Protein 6.0 Albumin 3.2 Globulin 2.8 Albumin/Globulin Ratio 1.2 Urine Color Urine Appearance Urine pH Ur Specific [place] Urine Protein Urine Glucose (UA) Urine Ketones Urine Blood Urine Nitrate Urine Bilirubin Urine Urobilinogen Ur Leukocyte Esterase Urine RBC Urine WBC Ur Epithelial Cells Urine Bacteria Urine Other EKG/Cardiology Studies: Cardiology / EKG Studies 04/11/18 20:25 ELECTROCARDIOGRAM Stat Comment: Reason For Exam: dvt Critical Care Progress Note - Nutrition Nutrition: Nutrition Category Date Time Status Heart Healthy Diet [DIET] Diets 04/12/18 Breakfast Active Assessment/Plan - Assessment and Plan (Free Text) Assessment: 63 y/o female with PMH of breast cancer s/p right mastectomy, DVT/ PE admitted for pulmonatry embolism evident by CT chest. Clinically stable on heparin drip Plan: Neuro: -Patient awake oriented in NAD. no focal deficits -Maintain normothermia Pulm: - Patient asymptomatic, clinically stable - CT chest: b/l lower lobe segmental branch PE - h/o PE at age 19 in the setting of OCP use - Continue heparin drip - Maintain O2 sat >90% CVS: - EKG: NSR@77 non specific T wave changes - Bedside Echo did not show RV strain - LL duplex done outside showed right DVT - Consult IR for further intervention - Echo: pending - U/S aortia/IVC/iliac - Maintain MAP>65 Heme/Onc: - H/O breast cancer s/p right mastectomy. On remission. Oncologist Dr Tay - Family hx of factor V mutation. Test ordered GI: -CT A/P: no abd/pelvic pathology ID: - f/u urine culture - UA negative for nitrate, trace LE Psych: - H/O depression - Continue Lexapro 10mg daily Renal: - Maintain euvolemia - Monitor electrolytes and replete as needed - In/out 470/400 in last 24 hours Prophylaxis: - DVT PPx: Heparin - GI PPx: Protonix Heart Healthy diet Patient seen and discussed in detail with attending Dr. Francisco Feldman, DO, PGY1 <Jose D Singh - Last Filed: 04/12/18 16:25> CCU Objective - Vital Signs / Intake & Output Intake and Output (Last 8hrs): Intake & Output 04/12/18 04/12/18 04/12/18 06:59 14:59 22:59 Intake Total 470 Output Total 400 Balance 70 Intake: IV 270 heparin 150 Oral 200 Output: Urine 400 Urine, Voided 400 - Medications Active Medications: Active Medications Generic Name Dose Route Start Last Admin Trade Name Freq PRN Reason Stop Dose Admin Acetaminophen 650 mg 04/12/18 00:48 Tylenol 325mg Tab PO Q4H PRN Pain, Mild (1-3) Anastrozole 1 mg 04/13/18 10:00 Arimidex 1 Mg Tab PO DAILY ARACELI Escitalopram Oxalate 10 mg 04/12/18 10:00 04/12/18 09:42 Lexapro PO 10 mg DAILY ARACELI Administration Heparin Sodium/Sodium Chloride 25,000 units in 250 mls @ 14.941 mls/hr 04/11/18 20:26 04/12/18 06:00 Heparin 41149 Units/250ml 1/2 Normal Saline IV 16 units/kg/hr .[id number] PRN 13.281 mls/hr ADJUST RATE PER PROTOCOL Titration Protocol 18 UNITS/KG/HR Lamotrigine 25 mg 04/12/18 10:00 04/12/18 09:40 Lamictal PO 25 mg DAILY ARACELI Administration Pantoprazole Sodium 40 mg 04/12/18 06:00 04/12/18 05:52 Protonix Ec Tab PO 40 mg 0600 ARACELI Administration - Patient Studies Lab Studies: Lab Studies 04/12/18 04/12/18 04/12/18 Range/Units 11:45 08:17 06:30 WBC (4.5-11.0) 10^3/uL RBC (3.5-6.1) 10^6/uL Hgb (12.0-16.0) g/dL Hct (36.0-48.0) % MCV (80.0-105.0) fl MCH (25.0-35.0) pg MCHC (31.0-37.0) g/dl RDW (11.5-14.5) % Plt Count (120.0-450.0) 10^3/uL MPV (7.0-11.0) fl Gran % (50.0-68.0) % Lymph % (Auto) (22.0-35.0) % Wirt % (Auto) (1.0-6.0) % Eos % (Auto) (1.5-5.0) % Baso % (Auto) (0.0-3.0) % Gran # (1.4-6.5) Lymph # (Auto) (1.2-3.4) Wirt # (Auto) (0.1-0.6) Eos # (Auto) (0.0-0.7) Baso # (Auto) (0.0-2.0) K/mm3 PT (9.4-12.5) SECONDS INR APTT 83.8 H (25.1-36.5) Seconds Sodium 135 (132-148) mmol/L Potassium 3.5 L (3.6-5.0) mmol/L Chloride 104 (98-107) mmol/L Carbon Dioxide 23 (21-33) mmol/L Anion Gap 11 (10-20) BUN 13 (7-21) mg/dL Creatinine 0.8 (0.7-1.2) mg/dl Est GFR ( Amer) > 60 Est GFR (Non-Af Amer) > 60 Random Glucose 121 H (70-110) mg/dL Calcium 8.4 (8.4-10.5) mg/dL Total Bilirubin 0.5 (0.2-1.3) mg/dL AST 21 (14-36) U/L ALT 30 (7-56) U/L Alkaline Phosphatase 55 (38-126) U/L Troponin I ng/mL NT-Pro-B Natriuret Pep 33.4 (0-450) pg/mL Total Protein 6.0 (5.8-8.3) g/dL Albumin 3.2 (3.0-4.8) g/dL Globulin 2.8 gm/dL Albumin/Globulin Ratio 1.2 (1.1-1.8) Urine Color (YELLOW) Urine Appearance (CLEAR) Urine pH (4.7-8.0) Ur Specific [place] (1.005-1.035) Urine Protein (<30 mg/dL) mg/dL Urine Glucose (UA) (NEGATIVE) mg/dL Urine Ketones (NEGATIVE) mg/dL Urine Blood (NEGATIVE) Urine Nitrate (NEGATIVE) Urine Bilirubin (NEGATIVE) Urine Urobilinogen (<1 E.U./dL) E.U./dL Ur Leukocyte Esterase (NEGATIVE) Yusra/uL Urine RBC (0-2) /hpf Urine WBC (0-6) /hpf Ur Epithelial Cells (0-5) /hpf Urine Bacteria (NEG) Urine Other 04/12/18 04/12/18 04/11/18 Range/Units 06:30 04:42 22:59 WBC 6.9 (4.5-11.0) 10^3/uL RBC 4.02 (3.5-6.1) 10^6/uL Hgb 12.3 (12.0-16.0) g/dL Hct 36.8 (36.0-48.0) % MCV 91.5 (80.0-105.0) fl MCH 30.6 (25.0-35.0) pg MCHC 33.4 (31.0-37.0) g/dl RDW 12.9 (11.5-14.5) % Plt Count 227 (120.0-450.0) 10^3/uL MPV 9.8 (7.0-11.0) fl Gran % 55.2 (50.0-68.0) % Lymph % (Auto) 30.7 (22.0-35.0) % Wirt % (Auto) 7.4 H (1.0-6.0) % Eos % (Auto) 6.3 H (1.5-5.0) % Baso % (Auto) 0.4 (0.0-3.0) % Gran # 3.78 (1.4-6.5) Lymph # (Auto) 2.1 (1.2-3.4) Wirt # (Auto) 0.5 (0.1-0.6) Eos # (Auto) 0.4 (0.0-0.7) Baso # (Auto) 0.03 (0.0-2.0) K/mm3 PT (9.4-12.5) SECONDS INR APTT 87.2 H (25.1-36.5) Seconds Sodium (132-148) mmol/L Potassium (3.6-5.0) mmol/L Chloride (98-107) mmol/L Carbon Dioxide (21-33) mmol/L Anion Gap (10-20) BUN (7-21) mg/dL Creatinine (0.7-1.2) mg/dl Est GFR ( Amer) Est GFR (Non-Af Amer) Random Glucose (70-110) mg/dL Calcium (8.4-10.5) mg/dL Total Bilirubin (0.2-1.3) mg/dL AST (14-36) U/L ALT (7-56) U/L Alkaline Phosphatase (38-126) U/L Troponin I ng/mL NT-Pro-B Natriuret Pep (0-450) pg/mL Total Protein (5.8-8.3) g/dL Albumin (3.0-4.8) g/dL Globulin gm/dL Albumin/Globulin Ratio (1.1-1.8) Urine Color Yellow (YELLOW) Urine Appearance Sl cloudy (CLEAR) Urine pH 6.0 (4.7-8.0) Ur Specific [place] 1.025 (1.005-1.035) Urine Protein Negative (<30 mg/dL) mg/dL Urine Glucose (UA) Negative (NEGATIVE) mg/dL Urine Ketones Negative (NEGATIVE) mg/dL Urine Blood Negative (NEGATIVE) Urine Nitrate Negative (NEGATIVE) Urine Bilirubin Negative (NEGATIVE) Urine Urobilinogen 0.2 (<1 E.U./dL) E.U./dL Ur Leukocyte Esterase Trace H (NEGATIVE) Yusra/uL Urine RBC Negative (0-2) /hpf Urine WBC 0 - 2 (0-6) /hpf Ur Epithelial Cells 6 - 8 (0-5) /hpf Urine Bacteria Few (NEG) Urine Other Mucus 04/11/18 04/11/18 04/11/18 Range/Units 20:51 20:51 20:51 WBC 7.3 (4.5-11.0) 10^3/uL RBC 4.38 (3.5-6.1) 10^6/uL Hgb 13.7 (12.0-16.0) g/dL Hct 39.9 (36.0-48.0) % MCV 91.1 (80.0-105.0) fl MCH 31.3 (25.0-35.0) pg MCHC 34.3 (31.0-37.0) g/dl RDW 12.8 (11.5-14.5) % Plt Count 257 (120.0-450.0) 10^3/uL MPV 9.9 (7.0-11.0) fl Gran % 64.5 (50.0-68.0) % Lymph % (Auto) 20.5 L (22.0-35.0) % Wirt % (Auto) 8.4 H (1.0-6.0) % Eos % (Auto) 5.9 H (1.5-5.0) % Baso % (Auto) 0.7 (0.0-3.0) % Gran # 4.70 (1.4-6.5) Lymph # (Auto) 1.5 (1.2-3.4) Wirt # (Auto) 0.6 (0.1-0.6) Eos # (Auto) 0.4 (0.0-0.7) Baso # (Auto) 0.05 (0.0-2.0) K/mm3 PT 13.4 H (9.4-12.5) SECONDS INR 1.17 APTT 25.8 (25.1-36.5) Seconds Sodium 136 (132-148) mmol/L Potassium 3.7 (3.6-5.0) mmol/L Chloride 103 (98-107) mmol/L Carbon Dioxide 23 (21-33) mmol/L Anion Gap 14 (10-20) BUN 13 (7-21) mg/dL Creatinine 0.9 (0.7-1.2) mg/dl Est GFR ( Amer) > 60 Est GFR (Non-Af Amer) > 60 Random Glucose 139 H (70-110) mg/dL Calcium 9.3 (8.4-10.5) mg/dL Total Bilirubin 0.7 (0.2-1.3) mg/dL AST 29 (14-36) U/L ALT 33 (7-56) U/L Alkaline Phosphatase 69 (38-126) U/L Troponin I < 0.01 ng/mL NT-Pro-B Natriuret Pep (0-450) pg/mL Total Protein 7.2 (5.8-8.3) g/dL Albumin 4.1 (3.0-4.8) g/dL Globulin 3.2 gm/dL Albumin/Globulin Ratio 1.3 (1.1-1.8) Urine Color (YELLOW) Urine Appearance (CLEAR) Urine pH (4.7-8.0) Ur Specific [place] (1.005-1.035) Urine Protein (<30 mg/dL) mg/dL Urine Glucose (UA) (NEGATIVE) mg/dL Urine Ketones (NEGATIVE) mg/dL Urine Blood (NEGATIVE) Urine Nitrate (NEGATIVE) Urine Bilirubin (NEGATIVE) Urine Urobilinogen (<1 E.U./dL) E.U./dL Ur Leukocyte Esterase (NEGATIVE) Yusra/uL Urine RBC (0-2) /hpf Urine WBC (0-6) /hpf Ur Epithelial Cells (0-5) /hpf Urine Bacteria (NEG) Urine Other Laboratory Results - last 24 hr 04/11/18 04/11/18 04/11/18 20:51 20:51 20:51 WBC 7.3 RBC 4.38 Hgb 13.7 Hct 39.9 MCV 91.1 MCH 31.3 MCHC 34.3 RDW 12.8 Plt Count 257 MPV 9.9 Gran % 64.5 Lymph % (Auto) 20.5 L Wirt % (Auto) 8.4 H Eos % (Auto) 5.9 H Baso % (Auto) 0.7 Gran # 4.70 Lymph # (Auto) 1.5 Wirt # (Auto) 0.6 Eos # (Auto) 0.4 Baso # (Auto) 0.05 PT 13.4 H INR 1.17 APTT 25.8 Sodium 136 Potassium 3.7 Chloride 103 Carbon Dioxide 23 Anion Gap 14 BUN 13 Creatinine 0.9 Est GFR ( Amer) > 60 Est GFR (Non-Af Amer) > 60 Random Glucose 139 H Calcium 9.3 Total Bilirubin 0.7 AST 29 ALT 33 Alkaline Phosphatase 69 Troponin I < 0.01 NT-Pro-B Natriuret Pep Total Protein 7.2 Albumin 4.1 Globulin 3.2 Albumin/Globulin Ratio 1.3 Urine Color Urine Appearance Urine pH Ur Specific [place] Urine Protein Urine Glucose (UA) Urine Ketones Urine Blood Urine Nitrate Urine Bilirubin Urine Urobilinogen Ur Leukocyte Esterase Urine RBC Urine WBC Ur Epithelial Cells Urine Bacteria Urine Other 04/11/18 04/12/18 04/12/18 22:59 04:42 06:30 WBC 6.9 RBC 4.02 Hgb 12.3 Hct 36.8 MCV 91.5 MCH 30.6 MCHC 33.4 RDW 12.9 Plt Count 227 MPV 9.8 Gran % 55.2 Lymph % (Auto) 30.7 Wirt % (Auto) 7.4 H Eos % (Auto) 6.3 H Baso % (Auto) 0.4 Gran # 3.78 Lymph # (Auto) 2.1 Wirt # (Auto) 0.5 Eos # (Auto) 0.4 Baso # (Auto) 0.03 PT INR APTT 87.2 H Sodium Potassium Chloride Carbon Dioxide Anion Gap BUN Creatinine Est GFR ( Amer) Est GFR (Non-Af Amer) Random Glucose Calcium Total Bilirubin AST ALT Alkaline Phosphatase Troponin I NT-Pro-B Natriuret Pep Total Protein Albumin Globulin Albumin/Globulin Ratio Urine Color Yellow Urine Appearance Sl cloudy Urine pH 6.0 Ur Specific [place] 1.025 Urine Protein Negative Urine Glucose (UA) Negative Urine Ketones Negative Urine Blood Negative Urine Nitrate Negative Urine Bilirubin Negative Urine Urobilinogen 0.2 Ur Leukocyte Esterase Trace H Urine RBC Negative Urine WBC 0 - 2 Ur Epithelial Cells 6 - 8 Urine Bacteria Few Urine Other Mucus 04/12/18 04/12/18 04/12/18 06:30 08:17 11:45 WBC RBC Hgb Hct MCV MCH MCHC RDW Plt Count MPV Gran % Lymph % (Auto) Wirt % (Auto) Eos % (Auto) Baso % (Auto) Gran # Lymph # (Auto) Wirt # (Auto) Eos # (Auto) Baso # (Auto) PT INR APTT 83.8 H Sodium 135 Potassium 3.5 L Chloride 104 Carbon Dioxide 23 Anion Gap 11 BUN 13 Creatinine 0.8 Est GFR ( Amer) > 60 Est GFR (Non-Af Amer) > 60 Random Glucose 121 H Calcium 8.4 Total Bilirubin 0.5 AST 21 ALT 30 Alkaline Phosphatase 55 Troponin I NT-Pro-B Natriuret Pep 33.4 Total Protein 6.0 Albumin 3.2 Globulin 2.8 Albumin/Globulin Ratio 1.2 Urine Color Urine Appearance Urine pH Ur Specific [place] Urine Protein Urine Glucose (UA) Urine Ketones Urine Blood Urine Nitrate Urine Bilirubin Urine Urobilinogen Ur Leukocyte Esterase Urine RBC Urine WBC Ur Epithelial Cells Urine Bacteria Urine Other EKG/Cardiology Studies: Cardiology / EKG Studies 04/11/18 20:25 ELECTROCARDIOGRAM Stat Comment: Reason For Exam: dvt Critical Care Progress Note - Nutrition Nutrition: Nutrition Category Date Time Status Heart Healthy Diet [DIET] Diets 04/12/18 Breakfast Active Attending/Attestation - Attestation I have personally seen and examined this patient.: Yes I have fully participated in the care of the patient.: Yes I have reviewed all pertinent clinical information: Yes Notes (Text): 04/12/18 16:[address] Singh note
--- NOTE | 2018-04-12 09:42 | CON ---
DATE: 04/12/2018 HISTORY OF PRESENT ILLNESS: This is a 63-year-old lady with history of breast cancer, status post mastectomy, and history of DVT in the past which at that time was attributed to OCPs that she was put on in her early 20s, who presented this time with right thigh swelling which was secondary to later diagnosed DVT. Upon further evaluation, the patient was found to have PE as well and was continued on therapeutic anticoagulation with heparin. Other than that, the patient denies chest pain, shortness of breath, syncopal episodes, near syncopal episode, lightheadedness, dizziness. Also, no fever, chills, sweats. No nausea, vomiting, diarrhea. PAST MEDICAL HISTORY: Breast cancer, status post mastectomy. DVT and PE. PAST SURGICAL HISTORY: Mastectomy, tonsillectomy. MEDICATIONS AT HOME: Lexapro, Protonix. ALLERGIES: NKDA. SOCIAL HISTORY: No alcohol or illicit drug abuse. No tobacco smoking. FAMILY HISTORY: Noncontributory except for the patient has Factor V Leiden in her dad. REVIEW OF SYSTEMS: Review of 12-organ systems other than mentioned in history of present illness is negative. PHYSICAL EXAMINATION: VITAL SIGNS: Blood pressure 112/65 (prior readings of low blood pressure were erroneous and related to wrong cuff size), oxygen saturation 92% on room air, respiratory rate 14, heart rate 68. ENT, HEAD AND NECK: Atraumatic. LUNGS: Clear to auscultation bilaterally. HEART: Regular rate and rhythm. S1, S2 normal. ABDOMEN: Soft, nontender, nondistended. MUSCULOSKELETAL: No C/C/E. Right thigh and ankle swollen more than left one. NEUROLOGIC: The patient moves all extremities spontaneously. SKIN: Moist. PSYCHIATRIC: The patient is alert, awake and oriented, not in respiratory or otherwise distress. LABORATORY DATA: Sodium 135, potassium 3.5, chloride 104, carbon dioxide 23, BUN 13, creatinine 0.8, glucose 121, AST 21, ALT 30, total bilirubin 0.5. Troponin less than 0.01. WBC 6.9, hemoglobin 12.3, platelet count 227. PTT 87.2 (the patient is on heparin drip). Urine is negative for nitrites; however, trace of leukocyte esterase present. MEDICATIONS: Tylenol p.r.n., Lexapro, heparin drip, Lamictal, Protonix. Chest CT showed subsegmental PE. No significant parenchymal abnormalities. ASSESSMENT AND PLAN: This is a 63-year-old lady who presented with pulmonary embolism/deep venous thrombosis/venous thromboembolism without signs of right ventricular strain or failure. The patient is asymptomatic. No shortness of breath and no chest pain. She is hemodynamically stable if not count erroneous blood pressure measurement. The patient appears to have extensive deep venous thrombosis and we will touch base with IR whether additional intervention should be considered to improve outcome of the DVT. Bedside echocardiogram did not reveal right ventricular dilatation or Prado's sign, left ventricle appears to be andrea well. Formal and official echocardiogram results are pending. We will continue to target euvolemia, glycemia, normothermia and oxygen saturation more than 90%. We will continue with GI prophylaxis. Patient is on TAC with heparin (she reportedly is cancer free now), further choice of DOA will be left for Hem service to decide. ccm time 40 min Jose D Singh MD JONAS
--- NOTE | 2018-04-12 09:43 | CT ---
Date of service: 04/11/2018 PROCEDURE: CT Abdomen and Pelvis with contrast HISTORY: Deep vein thrombosis right lower extremity. COMPARISON: CT abdomen and pelvis. April 11, 2018. Duplex venous sonography documenting femoral and popliteal thrombosis right lower extremity. TECHNIQUE: Intravenous contrast dose: 100 cc Visipaque 320. Radiation dose: Total exam DLP = 695.18 mGy-cm. This CT exam was performed using one or more of the following dose reduction techniques: Automated exposure control, adjustment of the mA and/or kV according to patient size, and/or use of iterative reconstruction technique. FINDINGS: LOWER THORAX: Unremarkable. LIVER: Hepatic steatosis. No focal masses. No intrahepatic bile duct dilatation or perihepatic ascites. Simple hepatic cysts unchanged compared to prior studies. GALLBLADDER AND BILE DUCTS: Unremarkable. PANCREAS: Unremarkable. No gross lesion or ductal dilatation. SPLEEN: Unremarkable. ADRENALS: Unremarkable. No mass. KIDNEYS AND URETERS: Unremarkable. No hydronephrosis. No solid mass. VASCULATURE: Unremarkable. No aortic aneurysm. No atherosclerotic calcification or mural plaque present. Thrombus identified in the right common femoral vein. The finding is marked on the study for review. Please refer to axial series 3/images [id number] BOWEL: Unremarkable. No obstruction. No gross mural thickening. APPENDIX: Normal appendix. PERITONEUM: Unremarkable. No free fluid. No free air. LYMPH NODES: Unremarkable. No enlarged lymph nodes. BLADDER: Unremarkable. REPRODUCTIVE: IUD identified. Small calcified fibroids identified. BONES: No acute fracture. OTHER FINDINGS: None. IMPRESSION: Right lower extremity deep vein thrombosis. There is no proximal propagation within the iliac venous system or IVC. Additional benign and/or incidental findings described above. Additional benign and/or incidental findings described above.
[2018-04-12] MEDS ORDERED: Potassium Chloride 40 mEq/30 ml LIQ UD PO ONE (10:52)
--- NOTE | 2018-04-12 13:42 | CARD ---
APPROVED REPORT Date of service: 04/11/2018 EKG Measurement Heart [id number] <Conclusion> Normal sinus rhythm Possible Left atrial enlargement Nonspecific T wave abnormality
[2018-04-12] MEDS ORDERED: Home Med 1 UNIT PO SCH (14:00)
--- NOTE | 2018-04-12 15:09 | US ---
PROCEDURE: 1. Duplex ultrasound of the inferior vena cava and iliac veins HISTORY: DVT. Evaluate for IVC or iliac vein ball vent PHYSICIAN(S): Jarrod Sanchez MD. FINDINGS: The exam is limited by body habitus and bowel gas. The visualized portions of the IVC and iliac veins are patent without evidence of thrombus. IMPRESSION: 1. No sonographic evidence for deep venous thrombosis in the visualized segments of the IVC and iliac veins 2. Limited study.
--- NOTE | 2018-04-12 16:26 | CARD ---
APPROVED REPORT Date of service: 04/12/2018 EXAM: Two-dimensional and M-mode echocardiogram with Doppler and color Doppler. INDICATION PE, RV FAILURE 2D DIMENSIONS IVSd1.0 (0.7-1.1cm)LVDd4.5 (3.9-5.9cm) PWd1.0 (0.7-1.1cm)LVDs2.8 (2.5-4.0cm) FS (%) 37.6 %LVEF (%)67.8 (>50%) M-Mode DIMENSIONS Left Atrium (MM)3.60 (2.5-4.0cm)Aortic Root3.00 (2.2-3.7cm) Aortic Cusp Exc.1.90 (1.5-2.0cm) Aortic Valve AoV Peak Vpuathju159.0cm/Shira Peak GR.9mmHg Mitral Valve MV E Iuldcbnk31.2cm/sMV A Ltdrdfyp79.8cm/sE/A ratio1.1 TDI Lateral E' Peak V9.55cm/sMedial E' Peak V7.02cm/sE/Lateral E'6.1 E/Medial E'8.3 Tricuspid Valve TR Peak Ryychdwu064vu/sRAP [id number] Peak Gr.16mmHg [id number] LEFT VENTRICLE The left ventricle is normal size. There is normal left ventricular wall thickness. The left ventricular function is normal. The left ventricular ejection fraction is within the normal range. There is normal LV segmental wall motion. RIGHT VENTRICLE The right ventricle is normal size. The right ventricular systolic function is normal. ATRIA The left atrium size is normal. The right atrium size is normal. The interatrial septum is intact with no evidence for an atrial septal defect. AORTIC VALVE The aortic valve is normal in structure. No aortic regurgitation is present. There is no aortic valvular stenosis. MITRAL VALVE The mitral valve is normal in structure. There is no mitral valve regurgitation noted. TRICUSPID VALVE The tricuspid valve is normal in structure. There is trace tricuspid regurgitation. There is no pulmonary hypertension. PULMONIC VALVE The pulmonary valve is normal in structure. There is trace pulmonic valvular regurgitation. GREAT VESSELS The aortic root is normal in size. The IVC is normal in size and collapses >50% with inspiration. PERICARDIAL EFFUSION There is no pleural effusion. There is no pericardial effusion. <Conclusion> Normal study.
--- NOTE | 2018-04-12 16:30 | CP.PCM.CON ---
<Kaykay Ellington - Last Filed: 04/12/18 17:20> History of Present Illness - History of Present Illness History of Present Illness: Gastroenterology Fellow/PGY6 Consult Note 63 year old female with PMH of Breast cancer s/p right mastectomy and DVT/ PE presenting with right leg swelling. 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 Denies chest pain, shortness of breath, nausea, vomiting, hematemesis, abdominal pain, diarrhea, constipation, or unintentional weight loss. GI consultation for atypical cough. Patient notes persistent daily dry cough for one year. Endorses prior recommendation to be related to apnea. Prior incomplete EGD - Dr. Varghese to review office records. Family History- mother- Breast cancer, sister: Breast cancer, Factor V Leiden Father- Factor V Leiden Social History-quit smoking 30 years ago, social ETOH use, denies illicit drug u se Surgical History- tonsillectomy, mastectomy Review of Systems - Review of Systems Review of Systems: 12-point review of systems negative except for as above Past Patient History - Infectious Disease Hx of Infectious Diseases: None - Past Social History Smoking Status: Former Smoker - CARDIAC Hx Pacemaker: No - PULMONARY Hx Sleep Apnea: Yes - NEUROLOGICAL Hx Paralysis: No - HEMATOLOGICAL/ONCOLOGICAL Hx Blood Transfusions: No - MUSCULOSKELETAL/RHEUMATOLOGICAL Hx Musculoskeletal Disorders: No - GASTROINTESTINAL Hx Gastroesophageal Reflux: Yes - PSYCHIATRIC Hx Depression: Yes Hx Emotional Abuse: No Hx Physical Abuse: No Hx Substance Use: No - SURGICAL HISTORY Hx Mastectomy: Yes (right) Hx Tonsillectomy: Yes - ANESTHESIA Hx Anesthesia: Yes Hx Anesthesia Reactions: Yes (ITCHING AFTER MASTECTOMY) Hx Malignant Hyperthermia: No Meds Allergies/Adverse Reactions: Allergies Allergy/AdvReac Type Severity Reaction Status Date / Time almonds Allergy ITCHING Uncoded 04/11/18 20:23 - Medications Medications: Current Medications Acetaminophen (Tylenol 325mg Tab) 650 mg PO Q4H PRN PRN Reason: Pain, Mild (1-3) Anastrozole (Arimidex 1 Mg Tab) 1 mg PO DAILY [facility] Escitalopram Oxalate (Lexapro) 10 mg PO DAILY [facility] Last Admin: 04/12/18 09:42 Dose: 10 mg Heparin Sodium/Sodium Chloride (Heparin 16748 Units/250ml 1/2 Normal Saline) 25,000 units in 250 mls @ 14.941 mls/hr IV .[id number] PRN; Protocol PRN Reason: ADJUST RATE PER PROTOCOL Last Titration: 04/12/18 06:00 Dose: 16 units/kg/hr, 13.281 mls/hr Lamotrigine (Lamictal) 25 mg PO DAILY [facility] Last Admin: 04/12/18 09:40 Dose: 25 mg Pantoprazole Sodium (Protonix Ec Tab) 40 mg PO 0600 [facility] Last Admin: 04/12/18 05:52 Dose: 40 mg Physical Exam - Constitutional Appears: Non-toxic, No Acute Distress - Head Exam Head Exam: ATRAUMATIC, NORMOCEPHALIC - Eye Exam Eye Exam: EOMI, PERRL. absent: Scleral icterus Pupil Exam: PERRL. absent: Miosis, Mydriatic - ENT Exam ENT Exam: Mucous Membranes Moist, Normal Oropharynx - Neck Exam Neck exam: Positive for: Full Rom, Normal Inspection - Respiratory Exam Respiratory Exam: Clear to Auscultation Bilateral. absent: Rales, Rhonchi, Wheezes - Cardiovascular Exam Cardiovascular Exam: RRR, +S1, +S2. absent: Gallop, Rubs - GI/Abdominal Exam GI & Abdominal Exam: Normal Bowel Sounds, Soft. absent: Distended, Firm, Organomegaly, Rebound, Rigid, Tenderness - Extremities Exam Extremities exam: Positive for: pedal edema - Neurological Exam Neurological exam: Alert - Psychiatric Exam Psychiatric exam: Normal Affect, Normal Mood - Skin Skin Exam: Dry, Intact, Normal Color, Warm Results - Vital Signs Recent Vital Signs: Last Vital Signs Temp 98.5 F 04/12/18 00:53 Pulse 71 04/12/18 09:40 Resp 18 04/12/18 09:40 BP 113/55 L 04/12/18 09:00 Pulse Ox 94 L 04/12/18 09:40 - Labs Result Diagrams: 04/12/18 06:30 04/12/18 06:30 Labs: Laboratory Results - last 24 hr 04/11/18 04/11/18 04/11/18 20:51 20:51 20:51 WBC 7.3 RBC 4.38 Hgb 13.7 Hct 39.9 MCV 91.1 MCH 31.3 MCHC 34.3 RDW 12.8 Plt Count 257 MPV 9.9 Gran % 64.5 Lymph % (Auto) 20.5 L Berg[place] % (Auto) 8.4 H Eos % (Auto) 5.9 H Baso % (Auto) 0.7 Gran # 4.70 Lymph # (Auto) 1.5 Berg[place] # (Auto) 0.6 Eos # (Auto) 0.4 Baso # (Auto) 0.05 PT 13.4 H INR 1.17 APTT 25.8 Sodium 136 Potassium 3.7 Chloride 103 Carbon Dioxide 23 Anion Gap 14 BUN 13 Creatinine 0.9 Est GFR ( Amer) > 60 Est GFR (Non-Af Amer) > 60 Random Glucose 139 H Calcium 9.3 Total Bilirubin 0.7 AST 29 ALT 33 Alkaline Phosphatase 69 Troponin I < 0.01 NT-Pro-B Natriuret Pep Total Protein 7.2 Albumin 4.1 Globulin 3.2 Albumin/Globulin Ratio 1.3 Urine Color Urine Appearance Urine pH Ur Specific [place] Urine Protein Urine Glucose (UA) Urine Ketones Urine Blood Urine Nitrate Urine Bilirubin Urine Urobilinogen Ur Leukocyte Esterase Urine RBC Urine WBC Ur Epithelial Cells Urine Bacteria Urine Other 04/11/18 04/12/18 04/12/18 22:59 04:42 06:30 WBC 6.9 RBC 4.02 Hgb 12.3 Hct 36.8 MCV 91.5 MCH 30.6 MCHC 33.4 RDW 12.9 Plt Count 227 MPV 9.8 Gran % 55.2 Lymph % (Auto) 30.7 Berg[place] % (Auto) 7.4 H Eos % (Auto) 6.3 H Baso % (Auto) 0.4 Gran # 3.78 Lymph # (Auto) 2.1 Berg[place] # (Auto) 0.5 Eos # (Auto) 0.4 Baso # (Auto) 0.03 PT INR APTT 87.2 H Sodium Potassium Chloride Carbon Dioxide Anion Gap BUN Creatinine Est GFR ( Amer) Est GFR (Non-Af Amer) Random Glucose Calcium Total Bilirubin AST ALT Alkaline Phosphatase Troponin I NT-Pro-B Natriuret Pep Total Protein Albumin Globulin Albumin/Globulin Ratio Urine Color Yellow Urine Appearance Sl cloudy Urine pH 6.0 Ur Specific [place] 1.025 Urine Protein Negative Urine Glucose (UA) Negative Urine Ketones Negative Urine Blood Negative Urine Nitrate Negative Urine Bilirubin Negative Urine Urobilinogen 0.2 Ur Leukocyte Esterase Trace H Urine RBC Negative Urine WBC 0 - 2 Ur Epithelial Cells 6 - 8 Urine Bacteria Few Urine Other Mucus 04/12/18 04/12/18 04/12/18 06:30 08:17 11:45 WBC RBC Hgb Hct MCV MCH MCHC RDW Plt Count MPV Gran % Lymph % (Auto) Berg[place] % (Auto) Eos % (Auto) Baso % (Auto) Gran # Lymph # (Auto) Berg[place] # (Auto) Eos # (Auto) Baso # (Auto) PT INR APTT 83.8 H Sodium 135 Potassium 3.5 L Chloride 104 Carbon Dioxide 23 Anion Gap 11 BUN 13 Creatinine 0.8 Est GFR ( Amer) > 60 Est GFR (Non-Af Amer) > 60 Random Glucose 121 H Calcium 8.4 Total Bilirubin 0.5 AST 21 ALT 30 Alkaline Phosphatase 55 Troponin I NT-Pro-B Natriuret Pep 33.4 Total Protein 6.0 Albumin 3.2 Globulin 2.8 Albumin/Globulin Ratio 1.2 Urine Color Urine Appearance Urine pH Ur Specific [place] Urine Protein Urine Glucose (UA) Urine Ketones Urine Blood Urine Nitrate Urine Bilirubin Urine Urobilinogen Ur Leukocyte Esterase Urine RBC Urine WBC Ur Epithelial Cells Urine Bacteria Urine Other Assessment & Plan - Assessment and Plan (Free Text) Assessment: 63 year old female with PMH of Breast cancer s/p right mastectomy and DVT/ PE presenting with right leg swelling. Active treatment of RLE DVT with Bilateral PE. GI consultation for atypical cough. Endorses prior recommendation to be related to apnea. Prior incomplete EGD - Dr. Varghese to review office records. Plan: -Dr. Varghese to review prior endoscopic record with note of incomplete procedure believed to be related to respiratory cause -continue PPI ACB -on heparin drip -continue cardiopulmonary management -will benefit from outpatient elective endoscopic evaluation once medically optimized to evaluate for reflux esophagitis, H. pylori, or additional esophageal pathology -follow up pulmonology recommendation for possible pulmonology source of symptoms -discussed with patient, understands plan of care <Al Varghese V - Last Filed: 04/12/18 21:29> Meds - Medications Medications: Current Medications Acetaminophen (Tylenol 325mg Tab) 650 mg PO Q4H PRN PRN Reason: Pain, Mild (1-3) Anastrozole (Arimidex 1 Mg Tab) 1 mg PO DAILY [facility] Escitalopram Oxalate (Lexapro) 10 mg PO DAILY [facility] Last Admin: 04/12/18 09:42 Dose: 10 mg Heparin Sodium/Sodium Chloride (Heparin 09864 Units/250ml 1/2 Normal Saline) 25,000 units in 250 mls @ 14.941 mls/hr IV .[id number] PRN; Protocol PRN Reason: ADJUST RATE PER PROTOCOL Last Admin: 04/12/18 18:58 Dose: 16 units/kg/hr, 13.281 mls/hr Lamotrigine (Lamictal) 25 mg PO DAILY [facility] Last Admin: 04/12/18 09:40 Dose: 25 mg Pantoprazole Sodium (Protonix Ec Tab) 40 mg PO 0600 [facility] Last Admin: 04/12/18 05:52 Dose: 40 mg Results - Vital Signs Recent Vital Signs: Last Vital Signs Temp 98 F 04/12/18 18:48 Pulse 77 04/12/18 18:59 Resp 51 H 04/12/18 18:59 BP 115/51 L 04/12/18 19:00 Pulse Ox 93 L 04/12/18 18:59 - Labs Result Diagrams: 04/12/18 06:30 04/12/18 06:30 Labs: Laboratory Results - last 24 hr 04/11/18 04/12/18 04/12/18 22:59 04:42 06:30 WBC 6.9 RBC 4.02 Hgb 12.3 Hct 36.8 MCV 91.5 MCH 30.6 MCHC 33.4 RDW 12.9 Plt Count 227 MPV 9.8 Gran % 55.2 Lymph % (Auto) 30.7 Bergen % (Auto) 7.4 H Eos % (Auto) 6.3 H Baso % (Auto) 0.4 Gran # 3.78 Lymph # (Auto) 2.1 Berg[place] # (Auto) 0.5 Eos # (Auto) 0.4 Baso # (Auto) 0.03 APTT 87.2 H Sodium Potassium Chloride Carbon Dioxide Anion Gap BUN Creatinine Est GFR ( Amer) Est GFR (Non-Af Amer) Random Glucose Calcium Total Bilirubin AST ALT Alkaline Phosphatase NT-Pro-B Natriuret Pep Total Protein Albumin Globulin Albumin/Globulin Ratio Urine Color Yellow Urine Appearance Sl cloudy Urine pH 6.0 Ur Specific [place] 1.025 Urine Protein Negative Urine Glucose (UA) Negative Urine Ketones Negative Urine Blood Negative Urine Nitrate Negative Urine Bilirubin Negative Urine Urobilinogen 0.2 Ur Leukocyte Esterase Trace H Urine RBC Negative Urine WBC 0 - 2 Ur Epithelial Cells 6 - 8 Urine Bacteria Few Urine Other Mucus 04/12/18 04/12/18 04/12/18 06:30 08:17 11:45 WBC RBC Hgb Hct MCV MCH MCHC RDW Plt Count MPV Gran % Lymph % (Auto) Berg[place] % (Auto) Eos % (Auto) Baso % (Auto) Gran # Lymph # (Auto) [place] # (Auto) Eos # (Auto) Baso # (Auto) APTT 83.8 H Sodium 135 Potassium 3.5 L Chloride 104 Carbon Dioxide 23 Anion Gap 11 BUN 13 Creatinine 0.8 Est GFR ( Amer) > 60 Est GFR (Non-Af Amer) > 60 Random Glucose 121 H Calcium 8.4 Total Bilirubin 0.5 AST 21 ALT 30 Alkaline Phosphatase 55 NT-Pro-B Natriuret Pep 33.4 Total Protein 6.0 Albumin 3.2 Globulin 2.8 Albumin/Globulin Ratio 1.2 Urine Color Urine Appearance Urine pH Ur Specific [place] Urine Protein Urine Glucose (UA) Urine Ketones Urine Blood Urine Nitrate Urine Bilirubin Urine Urobilinogen Ur Leukocyte Esterase Urine RBC Urine WBC Ur Epithelial Cells Urine Bacteria Urine Other 04/12/18 20:15 WBC RBC Hgb Hct MCV MCH MCHC RDW Plt Count MPV Gran % Lymph % (Auto) [place] % (Auto) Eos % (Auto) Baso % (Auto) Gran # Lymph # (Auto) [place] # (Auto) Eos # (Auto) Baso # (Auto) APTT 56.5 H Sodium Potassium Chloride Carbon Dioxide Anion Gap BUN Creatinine Est GFR ( Amer) Est GFR (Non-Af Amer) Random Glucose Calcium Total Bilirubin AST ALT Alkaline Phosphatase NT-Pro-B Natriuret Pep Total Protein Albumin Globulin Albumin/Globulin Ratio Urine Color Urine Appearance Urine pH Ur Specific [place] Urine Protein Urine Glucose (UA) Urine Ketones Urine Blood Urine Nitrate Urine Bilirubin Urine Urobilinogen Ur Leukocyte Esterase Urine RBC Urine WBC Ur Epithelial Cells Urine Bacteria Urine Other Attending/Attestation - Attestation I have personally seen and examined this patient.: Yes I have fully participated in the care of the patient.: Yes I have reviewed all pertinent clinical information: Yes Notes (Text): This is an addendum to GI consult report dictated by the GI Fellow.The patient was seen and examined earlier. Medical records, lab studies, imagings were reviewed. Last 24 hours events reviewed. Agreed with the above treatment plan as outlined in GI Fellow 's notes with the addition of the following 04/12/18 21:28
[2018-04-12] MEDS: Heparin25000 units/250ml 1/2NS 25,000 UNITS/250 ML BAG IV PRN (18:58)
--- NOTE | 2018-04-12 22:12 | CON ---
DATE: 04/12/2018 REFERRING PHYSICIAN: Tony Mike MD REASON FOR CONSULTATION: Pulmonary embolism, chronic lung disease. HISTORY OF PRESENT ILLNESS: This is a 63-year-old female, well known to me from previous admission and from the office, has a history of breast cancer, history of mastectomy, chronic lung disease. The patient since last 2 days has been having right leg some swelling, seen at Dr. Landry's office. Doppler was done which shows DVT, and a further workup suggested of pulmonary embolism, presently in intensive care unit, on anticoagulation. Feels better. No hemoptysis or emesis. Has right leg swelling. PAST MEDICAL HISTORY: As per history of present illness. ALLERGIES: NONE KNOWN. MEDICATIONS: She is on Armidex 1 mg daily, started on IV heparin weight-based protocol, also on Lamictal 25 mg daily, Lexapro 10 mg daily, Protonix 40 mg daily, Tylenol p.r.n. basis. REVIEW OF SYSTEMS: No headache. No rhinitis. Mild shortness of breath. No cough, no chest pain, no nausea, no vomiting, no diarrhea, no dysuria. Right leg, some swelling. PHYSICAL EXAMINATION: GENERAL: No acute distress. VITAL SIGNS: Temperature is 98, heart rate 71, respiratory rate is 18, blood pressure 113/55, pulse of 94% on nasal cannula. HEENT: Moist mucous membrane. Crowded airway. Mallampati score is 4. NECK: Supple. No JVD. LUNGS: Have a fair airflow with few rhonchi. HEART: S1 and S2. ABDOMEN: Soft, nontender, no organomegaly. EXTREMITIES: Right leg some edema. NEUROLOGIC: Awake and alert. Follows simple commands. LABORATORY DATA: Shows hemoglobin 12.3, hematocrit 36.8, WBC 6.9, platelet is 227. PTT is 84. Sodium 135, potassium 3.5, chloride 104, bicarbonate 23, BUN 13, creatinine 0.8, glucose 121, calcium 8.4, AST 21, ALT 30, alk phos is 55. Albumin is 3.2. ProBNP is 33. CTA of the chest shows positive examination of acute pulmonary embolism bilaterally. There is no consolidation. Stable appearance of right breast prosthesis and right axillary surgical clip. ASSESSMENT AND PLAN: Pulmonary embolism with deep vein thrombosis, breast cancer, history of gastroesophageal reflux disease. Case discussed with Dr. Landry. Also spoke to nursing staff. Agree with anticoagulation, supplemental oxygen. Follow up labs in the morning. Thank you and we will follow with you. Sahil Barlow MD
[2018-04-12] MEDS ORDERED: guaiFENesin 100 mg/5 ml Syrup UD PO PRN (23:02)
[2018-04-13] MEDS: Pantoprazole 40 mg EC Tab PO SCH (05:15)
[2018-04-13 05:33] LABS: BASO # 0.04 K/mm3 (0.0-2.0); BASO % 0.7 % (0.0-3.0); EOS # 0.3 (0.0-0.7); EOS % 5.6 % (1.5-5.0); GRAN # 3.07 (1.4-6.5); GRAN % 54.1 % (50.0-68.0); HEMOGLOBIN 13.1 g/dL (12.0-16.0); LYMPH # 1.9 (1.2-3.4); LYMPH % 32.6 % (22.0-35.0); MEAN CELL VOLUME 92.2 fl (80.0-105.0); MEAN CORPUSCULAR HGB CONC 33.7 g/dl (31.0-37.0); MEAN PLATELET VOLUME 9.5 fl (7.0-11.0); MONO # 0.4 (0.1-0.6); RBC 4.22 10^6/uL (3.5-6.1); RED CELL DISTRIBUTION WIDTH 12.8 % (11.5-14.5); WHITE BLOOD COUNT 5.7 10^3/uL (4.5-11.0)
[2018-04-13 06:20] LABS: ALB/GLOB RATIO 1.2 (1.1-1.8); ALBUMIN 3.5 g/dL (3.0-4.8); ALT/SGPT 31 U/L (7-56); AST/SGOT 22 U/L (14-36); BLOOD UREA NITROGEN 12 mg/dL (7-21); CALCIUM 8.9 mg/dL (8.4-10.5); GFR NON-AFRICAN AMERICAN > 60
[2018-04-13] MEDS ORDERED: Albuterol-Ipratrop 3 mg / 0.5 (3 ml) UD IH PRN (10:44)
[2018-04-13] MEDS ORDERED: Benzocaine/Menthol (Cepacol) Lozenge MT PRN (10:45)
--- NOTE | 2018-04-13 12:08 | CP.CCUPN ---
<Elio Britt - Last Filed: 04/13/18 12:05> CCU Subjective - Physician Review Subjective (Free Text): Elio Britt, PGY1 ICU Progress Note for Dr. Singh Patient was seen and examined at bedside this morning. Patient AAOx3, resting comfortably in no acute distress. Patient denies cp, sob, lightheadedness, dizziness, nausea, vomiting, diarrhea. No acute overnight events. Vital signs are stable. A full 12 point ROS was conducted and unremarkable except as stated above. CCU Objective - Vital Signs / Intake & Output Vital Signs (Last 4 hours): Vital Signs Pulse Resp BP Pulse Ox 04/13/18 10:10 70 16 94 L 04/13/18 10:00 72 14 111/56 L 92 L 04/13/18 09:50 70 15 94 L 04/13/18 09:40 81 97 04/13/18 09:30 80 96 04/13/18 09:20 75 48 H 96 04/13/18 09:10 66 9 L 94 L 04/13/18 09:00 91/54 L 04/13/18 08:59 63 13 93 L 04/13/18 08:50 65 12 93 L 04/13/18 08:40 65 13 93 L 04/13/18 08:30 66 12 93 L 04/13/18 08:20 64 10 L 95 04/13/18 08:10 62 12 94 L Intake and Output (Last 8hrs): Intake & Output 04/12/18 04/13/18 04/13/18 22:59 06:59 14:59 Intake Total 786 156 Output Total 700 Balance 86 156 Intake: IV 286 156 heparin 156 156 Oral 500 Output: Urine 700 Urine, Voided 700 Other: # Voids Urine, Voided 5 3 - Physical Exam Head: Positive for: Atraumatic, Normocephalic Pupils: Positive for: PERRL Extroacular Muscles: Positive for: EOMI Conjunctiva: Positive for: Normal Mouth: Positive for: Moist Mucous Membranes Neck: Positive for: Normal Range of Motion Respiratory/Chest: Positive for: Clear to Auscultation, Good Air Exchange. Negative for: Respiratory Distress, Accessory Muscle Use, Rales, Retracting, Rhonchi Cardiovascular: Positive for: Regular Rate and Rhythm, Normal S1, S2. Negative for: Murmurs Abdomen: Positive for: Normal Bowel Sounds. Negative for: Tenderness, Distention, Peritoneal Signs Back: Positive for: Normal Inspection Upper Extremity: Positive for: Normal Inspection. Negative for: Cyanosis, Edema Lower Extremity: Positive for: Normal ROM, Laura's Sign (RLE Laura's sign), Swelling (Swelling to RLE. improving), Neurovascularly Intact. Negative for: Edema, Erythema, Deformity, Temperature Abnormalties Neurological: Positive for: GCS=15, CN II-XII Intact, Speech Normal Skin: Positive for: Warm, Dry, Normal Color. Negative for: Rashes Psychiatric: Positive for: Alert, Oriented x 3, Normal Insight, Normal Concentration - Medications Active Medications: Active Medications Generic Name Dose Route Start Last Admin Trade Name Freq PRN Reason Stop Dose Admin Acetaminophen 650 mg 04/12/18 00:48 Tylenol 325mg Tab PO Q4H PRN Pain, Mild (1-3) Albuterol/Ipratropium 3 ml 04/13/18 10:44 Duoneb 3 Mg/0.5 Mg (3 Ml) Ud IH [id number] PRN Cough and congestion Anastrozole 1 mg 04/13/18 10:00 04/13/18 09:41 Arimidex 1 Mg Tab PO 1 mg DAILY ARACELI Administration Benzocaine/Menthol 1 charline 04/13/18 10:45 Cepacol Sore Throat MT Q2H PRN Cough Benzonatate 200 mg 04/13/18 14:00 Tessalon Perles PO TID ARACELI Escitalopram Oxalate 10 mg 04/12/18 10:00 04/13/18 09:49 Lexapro PO 10 mg DAILY ARACELI Administration Guaifenesin 100 mg 04/12/18 23:02 04/13/18 02:32 Robitussin PO 100 mg Q4H PRN Administration Cough Heparin Sodium/Sodium Chloride 25,000 units in 250 mls @ 14.941 mls/hr 04/11/18 20:26 04/12/18 18:58 Heparin 40017 Units/250ml 1/2 Normal Saline IV 16 units/kg/hr .[id number] PRN 13.281 mls/hr ADJUST RATE PER PROTOCOL Administration Protocol 18 UNITS/KG/HR Lamotrigine 25 mg 04/12/18 10:00 04/13/18 10:21 Lamictal PO Not Given DAILY ARACELI Pantoprazole Sodium 40 mg 04/12/18 06:00 04/13/18 05:15 Protonix Ec Tab PO 40 mg 0600 ARACELI Administration - Patient Studies Lab Studies: Microbiology Studies 04/12/18 03:00 Urine Culture - Final Urine,Clean Catch No Growth (<1,000 CFU/ML) Lab Studies 04/13/18 04/13/18 04/13/18 Range/Units 05:20 05:20 02:25 WBC 5.7 (4.5-11.0) 10^3/uL RBC 4.22 (3.5-6.1) 10^6/uL Hgb 13.1 (12.0-16.0) g/dL Hct 38.9 (36.0-48.0) % MCV 92.2 (80.0-105.0) fl MCH 31.0 (25.0-35.0) pg MCHC 33.7 (31.0-37.0) g/dl RDW 12.8 (11.5-14.5) % Plt Count 228 (120.0-450.0) 10^3/uL MPV 9.5 (7.0-11.0) fl Gran % 54.1 (50.0-68.0) % Lymph % (Auto) 32.6 (22.0-35.0) % [facility] % (Auto) 7.0 H (1.0-6.0) % Eos % (Auto) 5.6 H (1.5-5.0) % Baso % (Auto) 0.7 (0.0-3.0) % Gran # 3.07 (1.4-6.5) Lymph # (Auto) 1.9 (1.2-3.4) [facility] # (Auto) 0.4 (0.1-0.6) Eos # (Auto) 0.3 (0.0-0.7) Baso # (Auto) 0.04 (0.0-2.0) K/mm3 APTT 61.8 H (25.1-36.5) Seconds Sodium 140 (132-148) mmol/L Potassium 4.0 (3.6-5.0) mmol/L Chloride 109 H (98-107) mmol/L Carbon Dioxide 28 (21-33) mmol/L Anion Gap 7 L (10-20) BUN 12 (7-21) mg/dL Creatinine 0.8 (0.7-1.2) mg/dl Est GFR ( Amer) > 60 Est GFR (Non-Af Amer) > 60 Random Glucose 100 (70-110) mg/dL Calcium 8.9 (8.4-10.5) mg/dL Total Bilirubin 0.5 (0.2-1.3) mg/dL AST 22 (14-36) U/L ALT 31 (7-56) U/L Alkaline Phosphatase 64 (38-126) U/L Total Protein 6.3 (5.8-8.3) g/dL Albumin 3.5 (3.0-4.8) g/dL Globulin 2.8 gm/dL Albumin/Globulin Ratio 1.2 (1.1-1.8) 04/12/18 04/12/18 Range/Units 20:15 11:45 WBC (4.5-11.0) 10^3/uL RBC (3.5-6.1) 10^6/uL Hgb (12.0-16.0) g/dL Hct (36.0-48.0) % MCV (80.0-105.0) fl MCH (25.0-35.0) pg MCHC (31.0-37.0) g/dl RDW (11.5-14.5) % Plt Count (120.0-450.0) 10^3/uL MPV (7.0-11.0) fl Gran % (50.0-68.0) % Lymph % (Auto) (22.0-35.0) % [facility] % (Auto) (1.0-6.0) % Eos % (Auto) (1.5-5.0) % Baso % (Auto) (0.0-3.0) % Gran # (1.4-6.5) Lymph # (Auto) (1.2-3.4) [facility] # (Auto) (0.1-0.6) Eos # (Auto) (0.0-0.7) Baso # (Auto) (0.0-2.0) K/mm3 APTT 56.5 H 83.8 H (25.1-36.5) Seconds Sodium (132-148) mmol/L Potassium (3.6-5.0) mmol/L Chloride (98-107) mmol/L Carbon Dioxide (21-33) mmol/L Anion Gap (10-20) BUN (7-21) mg/dL Creatinine (0.7-1.2) mg/dl Est GFR ( Amer) Est GFR (Non-Af Amer) Random Glucose (70-110) mg/dL Calcium (8.4-10.5) mg/dL Total Bilirubin (0.2-1.3) mg/dL AST (14-36) U/L ALT (7-56) U/L Alkaline Phosphatase (38-126) U/L Total Protein (5.8-8.3) g/dL Albumin (3.0-4.8) g/dL Globulin gm/dL Albumin/Globulin Ratio (1.1-1.8) Laboratory Results - last 24 hr 04/12/18 04/12/18 04/13/18 11:45 20:15 02:25 WBC RBC Hgb Hct MCV MCH MCHC RDW Plt Count MPV Gran % Lymph % (Auto) [facility] % (Auto) Eos % (Auto) Baso % (Auto) Gran # Lymph # (Auto) [facility] # (Auto) Eos # (Auto) Baso # (Auto) APTT 83.8 H 56.5 H 61.8 H Sodium Potassium Chloride Carbon Dioxide Anion Gap BUN Creatinine Est GFR ( Amer) Est GFR (Non-Af Amer) Random Glucose Calcium Total Bilirubin AST ALT Alkaline Phosphatase Total Protein Albumin Globulin Albumin/Globulin Ratio 04/13/18 04/13/18 05:20 05:20 WBC 5.7 RBC 4.22 Hgb 13.1 Hct 38.9 MCV 92.2 MCH 31.0 MCHC 33.7 RDW 12.8 Plt Count 228 MPV 9.5 Gran % 54.1 Lymph % (Auto) 32.6 [facility] % (Auto) 7.0 H Eos % (Auto) 5.6 H Baso % (Auto) 0.7 Gran # 3.07 Lymph # (Auto) 1.9 [facility] # (Auto) 0.4 Eos # (Auto) 0.3 Baso # (Auto) 0.04 APTT Sodium 140 Potassium 4.0 Chloride 109 H Carbon Dioxide 28 Anion Gap 7 L BUN 12 Creatinine 0.8 Est GFR ( Amer) > 60 Est GFR (Non-Af Amer) > 60 Random Glucose 100 Calcium 8.9 Total Bilirubin 0.5 AST 22 ALT 31 Alkaline Phosphatase 64 Total Protein 6.3 Albumin 3.5 Globulin 2.8 Albumin/Globulin Ratio 1.2 Review of Systems - Review of Systems All systems: reviewed and no additional remarkable complaints except (as per HPI.) Critical Care Progress Note - Extremities/Vascular Does the Patient have a Central Venous Catheter?: No Does the Patient need a Central Venous Catheter?: No Does the Patient have a Ann Catheter?: No Does the Patient need a Ann Catheter?: No - Prophylaxis GI Prophylaxis GI: PPI - Nutrition Nutrition: Nutrition Category Date Time Status Heart Healthy Diet [DIET] Diets 04/12/18 Breakfast Active Assessment/Plan - Assessment and Plan (Free Text) Assessment: Patient is a 63 y/o female with PMH of breast cancer s/p right mastectomy, DVT/ PE 2/2 OCP use, depression, admitted for pulmonary embolism and DVT. Clinically stable on heparin drip, monitored in ICU and has been stable. Patient will be transferred to telemetry. Plan: Neuro/Psych: - Patient awake oriented in NAD. No focal neurologic deficits - Maintain normothermia - H/O depression; c/w Lexapro 10mg daily Pulm: - Patient asymptomatic, clinically stable; VSS - c/w heparin gtt - CT chest: b/l lower lobe segmental branch PE - LE duplex: right sided DVT - Aortic US: no sign of DVT in the IVC or illiac - h/o PE at age 19 2/2 OCP use - Maintain O2 sat >90% Cardio: - ECHO: EF 67% with no evidence of right heart strain - EKG: NSR@77 non specific T wave changes - Maintain MAP>65 Heme/Onc: - c/w heparin gtt for DVT/PE management - h/o breast cancer s/p right mastectomy. On remission. Oncologist Dr Tay - Family hx of factor V mutation GI: - GI ppx with protonix 40mg PO - CT A/P: no abd/pelvic pathology ID: - UCx negative - UA negative for nitrate, trace LE Renal: - Maintain euvolemia - Monitor electrolytes and replete as needed Prophylaxis: - DVT/PE Treatment: Heparin gtt - GI PPx: Protonix Dispo: Patient is stable for transfer to telemetry. Case was reviewed and discussed with Attending Physician Dr. Singh <Jose D Singh - Last Filed: 04/13/18 13:12> CCU Objective - Vital Signs / Intake & Output Vital Signs (Last 4 hours): Vital Signs Pulse Resp BP Pulse Ox 04/13/18 10:10 70 16 94 L 04/13/18 10:00 76 14 111/56 L 92 L 04/13/18 09:50 70 15 94 L 04/13/18 09:40 81 97 04/13/18 09:30 80 96 04/13/18 09:20 75 48 H 96 04/13/18 09:10 66 9 L 94 L Intake and Output (Last 8hrs): Intake & Output 04/12/18 04/13/18 04/13/18 22:59 06:59 14:59 Intake Total 786 156 Output Total 700 Balance 86 156 Intake: IV 286 156 heparin 156 156 Oral 500 Output: Urine 700 Urine, Voided 700 Other: # Voids Urine, Voided 5 3 - Medications Active Medications: Active Medications Generic Name Dose Route Start Last Admin Trade Name Freq PRN Reason Stop Dose Admin Acetaminophen 650 mg 04/12/18 00:48 Tylenol 325mg Tab PO Q4H PRN Pain, Mild (1-3) Albuterol/Ipratropium 3 ml 04/13/18 10:44 Duoneb 3 Mg/0.5 Mg (3 Ml) Ud IH [id number] PRN Cough and congestion Anastrozole 1 mg 04/13/18 10:00 04/13/18 09:41 Arimidex 1 Mg Tab PO 1 mg DAILY ARACELI Administration Benzocaine/Menthol 1 charline 04/13/18 10:45 Cepacol Sore Throat MT Q2H PRN Cough Benzonatate 200 mg 04/13/18 14:00 Tessalon Perles PO TID ARACELI Escitalopram Oxalate 10 mg 04/12/18 10:00 04/13/18 09:49 Lexapro PO 10 mg DAILY ARACELI Administration Guaifenesin 100 mg 04/12/18 23:02 04/13/18 02:32 Robitussin PO 100 mg Q4H PRN Administration Cough Heparin Sodium/Sodium Chloride 25,000 units in 250 mls @ 14.941 mls/hr 04/11/18 20:26 04/12/18 18:58 Heparin 28643 Units/250ml 1/2 Normal Saline IV 16 units/kg/hr .[id number] PRN 13.281 mls/hr ADJUST RATE PER PROTOCOL Administration Protocol 18 UNITS/KG/HR Lamotrigine 25 mg 04/12/18 10:00 04/13/18 10:21 Lamictal PO Not Given DAILY ARACELI Pantoprazole Sodium 40 mg 04/12/18 06:00 04/13/18 05:15 Protonix Ec Tab PO 40 mg 0600 ARACELI Administration - Patient Studies Lab Studies: Microbiology Studies 04/12/18 03:00 MRSA Culture (Admit) - Final Nose 04/12/18 03:00 Urine Culture - Final Urine,Clean Catch No Growth (<1,000 CFU/ML) Lab Studies 04/13/18 04/13/18 04/13/18 Range/Units 05:20 05:20 02:25 WBC 5.7 (4.5-11.0) 10^3/uL RBC 4.22 (3.5-6.1) 10^6/uL Hgb 13.1 (12.0-16.0) g/dL Hct 38.9 (36.0-48.0) % MCV 92.2 (80.0-105.0) fl MCH 31.0 (25.0-35.0) pg MCHC 33.7 (31.0-37.0) g/dl RDW 12.8 (11.5-14.5) % Plt Count 228 (120.0-450.0) 10^3/uL MPV 9.5 (7.0-11.0) fl Gran % 54.1 (50.0-68.0) % Lymph % (Auto) 32.6 (22.0-35.0) % [facility] % (Auto) 7.0 H (1.0-6.0) % Eos % (Auto) 5.6 H (1.5-5.0) % Baso % (Auto) 0.7 (0.0-3.0) % Gran # 3.07 (1.4-6.5) Lymph # (Auto) 1.9 (1.2-3.4) [facility] # (Auto) 0.4 (0.1-0.6) Eos # (Auto) 0.3 (0.0-0.7) Baso # (Auto) 0.04 (0.0-2.0) K/mm3 APTT 61.8 H (25.1-36.5) Seconds Sodium 140 (132-148) mmol/L Potassium 4.0 (3.6-5.0) mmol/L Chloride 109 H (98-107) mmol/L Carbon Dioxide 28 (21-33) mmol/L Anion Gap 7 L (10-20) BUN 12 (7-21) mg/dL Creatinine 0.8 (0.7-1.2) mg/dl Est GFR ( Amer) > 60 Est GFR (Non-Af Amer) > 60 Random Glucose 100 (70-110) mg/dL Calcium 8.9 (8.4-10.5) mg/dL Total Bilirubin 0.5 (0.2-1.3) mg/dL AST 22 (14-36) U/L ALT 31 (7-56) U/L Alkaline Phosphatase 64 (38-126) U/L Total Protein 6.3 (5.8-8.3) g/dL Albumin 3.5 (3.0-4.8) g/dL Globulin 2.8 gm/dL Albumin/Globulin Ratio 1.2 (1.1-1.8) 04/12/18 Range/Units 20:15 WBC (4.5-11.0) 10^3/uL RBC (3.5-6.1) 10^6/uL Hgb (12.0-16.0) g/dL Hct (36.0-48.0) % MCV (80.0-105.0) fl MCH (25.0-35.0) pg MCHC (31.0-37.0) g/dl RDW (11.5-14.5) % Plt Count (120.0-450.0) 10^3/uL MPV (7.0-11.0) fl Gran % (50.0-68.0) % Lymph % (Auto) (22.0-35.0) % [facility] % (Auto) (1.0-6.0) % Eos % (Auto) (1.5-5.0) % Baso % (Auto) (0.0-3.0) % Gran # (1.4-6.5) Lymph # (Auto) (1.2-3.4) [facility] # (Auto) (0.1-0.6) Eos # (Auto) (0.0-0.7) Baso # (Auto) (0.0-2.0) K/mm3 APTT 56.5 H (25.1-36.5) Seconds Sodium (132-148) mmol/L Potassium (3.6-5.0) mmol/L Chloride (98-107) mmol/L Carbon Dioxide (21-33) mmol/L Anion Gap (10-20) BUN (7-21) mg/dL Creatinine (0.7-1.2) mg/dl Est GFR ( Amer) Est GFR (Non-Af Amer) Random Glucose (70-110) mg/dL Calcium (8.4-10.5) mg/dL Total Bilirubin (0.2-1.3) mg/dL AST (14-36) U/L ALT (7-56) U/L Alkaline Phosphatase (38-126) U/L Total Protein (5.8-8.3) g/dL Albumin (3.0-4.8) g/dL Globulin gm/dL Albumin/Globulin Ratio (1.1-1.8) Laboratory Results - last 24 hr 04/12/18 04/13/18 04/13/18 20:15 02:25 05:20 WBC 5.7 RBC 4.22 Hgb 13.1 Hct 38.9 MCV 92.2 MCH 31.0 MCHC 33.7 RDW 12.8 Plt Count 228 MPV 9.5 Gran % 54.1 Lymph % (Auto) 32.6 [facility] % (Auto) 7.0 H Eos % (Auto) 5.6 H Baso % (Auto) 0.7 Gran # 3.07 Lymph # (Auto) 1.9 [facility] # (Auto) 0.4 Eos # (Auto) 0.3 Baso # (Auto) 0.04 APTT 56.5 H 61.8 H Sodium Potassium Chloride Carbon Dioxide Anion Gap BUN Creatinine Est GFR ( Amer) Est GFR (Non-Af Amer) Random Glucose Calcium Total Bilirubin AST ALT Alkaline Phosphatase Total Protein Albumin Globulin Albumin/Globulin Ratio 04/13/18 05:20 WBC RBC Hgb Hct MCV MCH MCHC RDW Plt Count MPV Gran % Lymph % (Auto) [facility] % (Auto) Eos % (Auto) Baso % (Auto) Gran # Lymph # (Auto) [facility] # (Auto) Eos # (Auto) Baso # (Auto) APTT Sodium 140 Potassium 4.0 Chloride 109 H Carbon Dioxide 28 Anion Gap 7 L BUN 12 Creatinine 0.8 Est GFR ( Amer) > 60 Est GFR (Non-Af Amer) > 60 Random Glucose 100 Calcium 8.9 Total Bilirubin 0.5 AST 22 ALT 31 Alkaline Phosphatase 64 Total Protein 6.3 Albumin 3.5 Globulin 2.8 Albumin/Globulin Ratio 1.2 Critical Care Progress Note - Nutrition Nutrition: Nutrition Category Date Time Status Heart Healthy Diet [DIET] Diets 04/12/18 Breakfast Active Attending/Attestation - Attestation I have personally seen and examined this patient.: Yes I have fully participated in the care of the patient.: Yes I have reviewed all pertinent clinical information: Yes Notes (Text): 04/13/18 13:08 63 yo female with DVT/PE in the setting of FV Leiden mutation, was admitted to icu for risk stratification. troponin, bnp were wnl, echo did not show RV starin, PTT therapeutic, cont TAC, timing and type of DOA to be switched to will be deferred to and determined by hem service (Dr. Landry). Ok to downgrade to tele ccm time 40 min
--- NOTE | 2018-04-13 13:25 | PN ---
DATE: 04/13/2018 PULMONARY PROGRESS NOTE REFERRING PHYSICIAN: Tony Mike MD SUBJECTIVE: She has moved out of Intensive Care Unit on telemetry, sitting up in a bed, feels okay. Has some dry cough. No sputum production. No nausea, no vomiting, no diarrhea. Decreased right leg swelling. OBJECTIVE: GENERAL: In no acute distress. VITAL SIGNS: Temperature is 98, heart rate 70, respiratory rate is 16, blood pressure 111/56, pulse of 94% on room air. HEENT: Moist mucous membrane. Crowded airway. NECK: Supple. No JVD. LUNGS: Have a fair airflow with rhonchi. HEART: S1, S2. ABDOMEN: Soft, nontender, no organomegaly. EXTREMITIES: No edema. NEUROLOGIC: Awake and alert. Follows simple command. MEDICATIONS: She is on Arimidex 1 mg daily, IV weight-based heparin, Lamictal 25 mg daily, Lexapro 10 mg daily, Protonix 40 mg at bedtime, Robitussin 4 mL every 4 hours p.r.n., Tylenol p.r.n. basis. LABORATORY DATA: Shows hemoglobin of 13.1, hematocrit 38.9, WBC 5.7, platelet is 228,000. PTT 62. Sodium 140, potassium 4.0, chloride 109, bicarbonate 28, BUN 12, creatinine 0.8, glucose 100, calcium is 8.9, total bili 0.5, AST 22, ALT 31, alk phos is 64. Albumin is 3.5. IMPRESSION AND PLAN: Pulmonary embolism, deep venous thrombosis, history of breast cancer, gastroesophageal reflux disease, has some dry cough. We will continue anticoagulation, gastric prophylaxis. Keep head at 45 degrees. Gastroesophageal reflux disease precaution. May add p.r.n. nebulizer treatment, Tessalon Perles 200 mg every 8 hours. Out of bed to chair, physical therapy. Thank you and we will follow with you. Sahil Barlow MD
[2018-04-13] MEDS: Heparin25000 units/250ml 1/2NS 25,000 UNITS/250 ML BAG IV PRN (14:52)
--- NOTE | 2018-04-13 18:50 | PN ---
DATE: 04/13/2018 This is [facility]'s hospital visit on the telemetry floor. For Dr. Landry. SUBJECTIVE: The patient is a 63-year-old female, admitted by the emergency room for bilateral pulmonary emboli and DVT, now released from the intensive care unit on the telemetry floor, lying in bed with IV heparin continuing. The patient reports that her appetite is fair and she is otherwise denying pain and is otherwise in no acute distress. It should be noted that a nasal swab was positive for methicillin-resistant Staphylococcus, which the patient now reports that she has had a colored discharge from her nose over the past few weeks and this, she believes, may have been an infection. PHYSICAL EXAMINATION: VITAL SIGNS: Temperature 98.5, pulse 74, respirations 20, blood pressure 95/51 and pulse oximetry 94%. HEENT: Unremarkable. NECK: Supple. HEART: Regular rate. LUNGS: Rare rhonchi. ABDOMEN: Obese, soft, and nontender. EXTREMITIES: No edema. SKIN: Warm and dry. NEUROLOGIC: Awake and alert. LABORATORY DATA: The patient's labs were done; white blood cell count of 5.7, hemoglobin 13.1, hematocrit of 38.9, and platelet count of 228,000 with a chem metabolic panel within normal limits. Her PTT was 61.8 earlier today. Her urine showed no growth on her culture; however, the nasal MRSA screen was positive. ASSESSMENT: Bilateral pulmonary embolism, deep vein thrombosis, history of breast cancer, gastroesophageal reflux disease, Methicillin-resistant Staphylococcus aureus positive nasal swab and history of thyroid nodules. PLAN: After conversation with Dr. Landry is to continue present medical regimen including her IV heparin with transition to oral anticoagulants soon. We will ask for consult with Dr. Lange Infectious Disease regarding her positive nasal culture. We will monitor clinically and with labs. This is a complex patient with a comprehensive medically necessary and appropriate visit carried out in excess of 20 minutes with the patient's questions answered to her satisfaction. Tony Mike MD
[2018-04-14] MEDS: Pantoprazole 40 mg EC Tab PO SCH (05:33)
[2018-04-14 06:57] LABS: BASO # 0.04 K/mm3 (0.0-2.0); BASO % 0.7 % (0.0-3.0); EOS # 0.3 (0.0-0.7); EOS % 5.9 % (1.5-5.0); GRAN % 51.8 % (50.0-68.0); HEMOGLOBIN 12.9 g/dL (12.0-16.0); LYMPH # 2.1 (1.2-3.4); LYMPH % 35.6 % (22.0-35.0); MEAN CELL VOLUME 91.7 fl (80.0-105.0); MEAN CORPUSCULAR HEMOGLOBIN 30.7 pg (25.0-35.0); MEAN CORPUSCULAR HGB CONC 33.5 g/dl (31.0-37.0); MEAN PLATELET VOLUME 9.8 fl (7.0-11.0); MONO # 0.4 (0.1-0.6); RBC 4.2 10^6/uL (3.5-6.1); RED CELL DISTRIBUTION WIDTH 12.8 % (11.5-14.5); WHITE BLOOD COUNT 5.8 10^3/uL (4.5-11.0)
[2018-04-14 07:32] LABS: ALB/GLOB RATIO 1.2 (1.1-1.8); ALBUMIN 3.5 g/dL (3.0-4.8); ALT/SGPT 31 U/L (7-56); AST/SGOT 21 U/L (14-36); BLOOD UREA NITROGEN 12 mg/dL (7-21); CALCIUM 8.8 mg/dL (8.4-10.5); GFR NON-AFRICAN AMERICAN > 60
[2018-04-14] MEDS: Mupirocin 2% Ointment 15 GM TUBE NS SCH ×2 (09:49→17:34)
[2018-04-14] MEDS: Heparin25000 units/250ml 1/2NS 25,000 UNITS/250 ML BAG IV PRN (11:58)
--- NOTE | 2018-04-14 13:57 | CON ---
DATE: 04/14/2018 The patient is seen in 252, bed 1. CHIEF COMPLAINT: Lower extremity edema and erythema times several days. HISTORY OF PRESENT ILLNESS: This is a 63-year-old female with past medical history significant for breast cancer, who was admitted with lower extremity edema, and the patient also has a history of depression, alcohol use and smoking, ex-smoker, who is admitted with DVT and nasal MRSA screen is done and found to be positive. Infectious Disease consultation requested. The patient denies any fever, any chills, nausea, vomiting, or chest pain. REVIEW OF SYSTEMS: Fourteen point review of systems is performed. PAST MEDICAL HISTORY: Significant for breast cancer, depression, alcohol use and ex-smoker. PAST SURGICAL HISTORY: Significant for right mastectomy, tonsillectomy. The patient also had a port-a-cath taken out. It was not infected. It was taken out years ago because of chemotherapy for her breast cancer had been completed. ALLERGIES: THE PATIENT IS ALLERGIC TO ALMONDS. MEDICATIONS: Noted. PHYSICAL EXAMINATION: VITAL SIGNS: On exam, temperature is 98, blood pressure is 113/50, respiratory rate of 20, heart rate of 63. HEENT: Unremarkable. NECK: Supple. LUNGS: Have decreased breath sounds. HEART: Normal S1, S2. ABDOMEN: Soft. LABORATORY DATA: Laboratory examination reveals a white count of 5.8, hemoglobin of 12. BUN of 12, creatinine of 0.9. Urinalysis is noted. Microbiology reveals the urine culture is negative and the nasal MRSA screen is positive. Dr. Mike's progress note is reviewed. ASSESSMENT AND PLAN: A 63-year-old female with breast cancer, admitted with right leg swelling, history of depression, alcohol abuse, and now with right leg deep vein thrombosis with pulmonary emboli, found to have methicillin-resistant Staphylococcus aureus nasal screen, was treated with mupirocin, is ordered x5 days and b.i.d. intranasally ointment and Bactroban ointment b.i.d. x5 days, and we will follow closely with you. Danis Lange MD
--- NOTE | 2018-04-14 18:38 | PN ---
DATE: 04/14/2018 This is [facility] on the telemetry floor. For Dr. Landry. SUBJECTIVE: The patient is a 63-year-old female known to have bilateral pulmonary emboli and DVT, now on the telemetry floor in isolation due to MRSA positive nares swab with Bactroban, began as per Dr. Lange, with the patient denying any pain, reporting that she usually takes Lexapro 20 mg and not 10 mg, we will adjust her dose with the patient continuing on IV heparin for her pulmonary emboli and DVT. PHYSICAL EXAMINATION: VITAL SIGNS: Temperature 97, pulse 70, respirations 17, blood pressure 100/60 and pulse oximetry 94%. HEENT: Unremarkable. NECK: Supple. HEART: Regular rate. LUNGS: Rare rhonchi. ABDOMEN: Soft, obese and nontender. EXTREMITIES: No edema. SKIN: Warm and dry. NEUROLOGIC: Awake, alert and oriented x3. LABORATORY DATA: The patient's labs were done; white blood cell count of 5.8, hemoglobin 12.9, hematocrit of 38.5, and platelet count of 226,000 with a chem metabolic panel showing a potassium of 3.5, which has since been corrected with a chloride of 108, otherwise normal chem panel. Her PTT was 70.6. ASSESSMENT: Bilateral pulmonary emboli, deep vein thrombosis, history of breast cancer, gastroesophageal reflux disease, Methicillin-resistant Staphylococcus aureus nasal swab, obesity, history of thyroid nodules, depression. PLAN: Will be to continue present medical regimen. We will increase her Lexapro to 20 mg with consideration for change to oral anticoagulant as indicated with heparin to continue for now. We will monitor clinically with the patient in isolation due to hospital protocol for MRSA. This is a complex patient with a comprehensive medically necessary and appropriate visit carried out in excess of 15 minutes with the patient's questions answered to her satisfaction. Bactroban ointment is now begun and her labs and the patient would be monitored clinically. Tony Mike MD
[2018-04-15] MEDS: Pantoprazole 40 mg EC Tab PO SCH (06:40)
[2018-04-15 07:38] LABS: BASO # 0.03 K/mm3 (0.0-2.0); BASO % 0.6 % (0.0-3.0); EOS # 0.3 (0.0-0.7); EOS % 5.5 % (1.5-5.0); GRAN # 2.85 (1.4-6.5); GRAN % 54.2 % (50.0-68.0); HEMOGLOBIN 12.9 g/dL (12.0-16.0); LYMPH # 1.7 (1.2-3.4); LYMPH % 32.7 % (22.0-35.0); MEAN CELL VOLUME 91.7 fl (80.0-105.0); MEAN CORPUSCULAR HEMOGLOBIN 30.5 pg (25.0-35.0); MEAN CORPUSCULAR HGB CONC 33.2 g/dl (31.0-37.0); MEAN PLATELET VOLUME 9.8 fl (7.0-11.0); MONO # 0.4 (0.1-0.6); RBC 4.23 10^6/uL (3.5-6.1); RED CELL DISTRIBUTION WIDTH 12.9 % (11.5-14.5); WHITE BLOOD COUNT 5.3 10^3/uL (4.5-11.0)
--- NOTE | 2018-04-15 07:53 | PN ---
DATE: 04/15/2018 SUBJECTIVE: The patient is in bed, in no acute distress, nontoxic. PHYSICAL EXAMINATION: VITAL SIGNS: On exam, temperature is 98, blood pressure is 100/50, respiratory rate of 20, heart rate of 65. HEENT: Examination of HEENT is unremarkable. NECK: Supple. LUNGS: Have decreased breath sounds. HEART: Normal S1, S2. ABDOMINAL: Soft, nontender. LABORATORY DATA: Laboratory examination reveals the patient's white count of 5.3, hemoglobin of 12, platelets of 237. Chemistries are noted. Urinalysis is noted. Microbiology is reviewed. ASSESSMENT AND PLAN: A 63-year-old female with a history of breast cancer. Admitted with a right leg swelling, history of depression, alcohol abuse, now with a right leg deep venous thrombosis, pulmonary emboli, found to have methicillin-resistant Staphylococcus aureus in nasal screen, is treated with mupirocin as ordered for [address] Tony Mike's note from yesterday is reviewed. Danis Lange MD
[2018-04-15 08:00] LABS: ALB/GLOB RATIO 1.3 (1.1-1.8); ALBUMIN 3.6 g/dL (3.0-4.8); ALT/SGPT 36 U/L (7-56); AST/SGOT 30 U/L (14-36); BLOOD UREA NITROGEN 13 mg/dL (7-21); CALCIUM 8.9 mg/dL (8.4-10.5); GFR NON-AFRICAN AMERICAN > 60
[2018-04-15] MEDS: Mupirocin 2% Ointment 15 GM TUBE NS SCH ×2 (09:59→17:53)
[2018-04-15] MEDS: Heparin25000 units/250ml 1/2NS 25,000 UNITS/250 ML BAG IV PRN (10:00)
[2018-04-15] MEDS ORDERED: Potassium Chloride 20 mEq ER Tab PO ONE (14:55)
--- NOTE | 2018-04-15 18:58 | PN ---
DATE: 04/15/2018 PULMONARY PROGRESS NOTE REFERRING PHYSICIAN: Tony Mike MD SUBJECTIVE: She is lying on the bed, head at 45 degrees, and receiving IV heparin. No headache. No rhinitis. Has mild cough. No nausea, vomiting, diarrhea, leg pain or leg swelling. OBJECTIVE: GENERAL: In no acute distress. VITAL SIGNS: Temperature is 98, heart rate is 68, respiratory rate is 18, blood pressure is 99/55, and pulse ox is 98% room air. HEENT: Moist mucous membrane. Crowded airway. NECK: Supple. No JVD. LUNGS: Has a fair airflow with few rhonchi. HEART: S1 and S2. ABDOMEN: Soft and nontender. No organomegaly. EXTREMITIES: There is no edema. NEUROLOGIC: Awake, alert and follows simple command. MEDICATIONS: She is on Arimidex 1 mg daily, bacitracin ointment to affected area twice a day, Cepacol lozenges every 2 hours p.r.n., DuoNeb every 6 hours p.r.n., Eliquis 10 mg every 12 hours, lamotrigine 25 mg daily, Lexapro 20 mg daily, Protonix 40 mg daily, Robitussin 100 mg every 4 hours p.r.n., Tessalon Perles 200 mg three times a day, and Tylenol p.r.n. basis. LABORATORY DATA: Shows hemoglobin 12.9, hematocrit 38.8, WBC 5.3, and platelet count is 237,000. Blood sugar was 69. Sodium 139, potassium 3.4, chloride 108, bicarbonate 24, BUN 13, creatinine 0.9, calcium is 8.9, AST 30, ALT 36, alk phos is 64, and albumin is 3.6. IMPRESSION AND PLAN: Pulmonary embolism, deep venous thrombosis, history of breast cancer, gastroesophageal reflux disease, and chronic cough. Pulmonary point of view, doing okay. Continue anticoagulation. Keep head at 45 degrees. Gastric prophylaxis. Gastroesophageal reflux disease precaution. Tessalon Perles for cough. Thank you and we will follow with you. Sahil Barlow MD
--- NOTE | 2018-04-15 21:53 | PN ---
DATE: 04/15/2018 This is [facility]'s [facility] visit on the telemetry floor. For Dr. Landry. SUBJECTIVE: The patient is a 63-year-old female, seen sitting up in the chair as her bed is being changed in isolation due to MRSA positive nares swab with the patient now continuing IV heparin for her bilateral pulmonary emboli and deep venous thrombosis. She is otherwise in no acute distress with her meds to be changed, transitioned now to oral with heparin to be discontinued. OBJECTIVE: VITAL SIGNS: Temperature 97.2, pulse 67, respirations 18, blood pressure 101/61, and pulse oximetry 96%. PHYSICAL EXAMINATION: HEENT: Unremarkable. NECK: Supple. HEART: Regular rate. LUNGS: Clear. ABDOMEN: Obese, soft and nontender. EXTREMITIES: No edema. SKIN: Warm and dry. NEUROLOGIC: Awake, alert and oriented x3. LABORATORY DATA: The patient's labs were done. White blood cell count of 5.3, hemoglobin 12.9, hematocrit of 38.8, and platelet count of 237,000 with a chem metabolic panel showing a potassium of 3.4, which will be replenished with a chloride of 108, otherwise normal panel. Her PTT today is 69. ASSESSMENT: The assessment for this patient is that of bilateral pulmonary emboli, deep venous thrombosis, history of breast cancer, gastroesophageal reflux disease, methicillin-resistant Staphylococcus aureus nasal swab, obesity, history of thyroid nodules, depression. PLAN: Plan for this patient is to begin Eliquis 10 mg every 12 hours for seven days and then to cut back to 5 mg b.i.d. We will stop her heparin at the time the Eliquis is begun. We will replenish her potassium of 3.4 with labs to be monitored, and the patient to be monitored clinically. Also transfer her to the med/surg floor as telemetry does not appear to be necessary at this point as she will be of IV heparin. This is a complex patient with a comprehensive medically necessary and appropriate visit carried out in excess of 25 minutes with the patient's questions answered to her satisfaction with the nurse given instructions on protocol as above. Tony Mike MD [facility] # [id number]
[2018-04-16] MEDS: Pantoprazole 40 mg EC Tab PO SCH (05:08)
[2018-04-16] MEDS: Mupirocin 2% Ointment 15 GM TUBE NS SCH ×2 (09:19→17:44)
--- NOTE | 2018-04-16 09:56 | PN ---
DATE: 04/16/2018 SUBJECTIVE: The patient is in bed, in no acute distress. PHYSICAL EXAMINATION: VITAL SIGNS: On exam, temperature is 97, blood pressure is 103/60, respiratory rate of 20, heart rate of 80. HEENT: Examination of HEENT is unremarkable. NECK: Supple. LUNGS: Have decreased breath sounds. HEART: Normal S1, S2. ABDOMEN: Soft. LABORATORY DATA: Laboratory examination reveals the patient has had white count of 5.3, hemoglobin of 12, platelets of 237. Chemistries reveals a BUN of 13, creatinine of 0.9. Urinalysis is noted and microbiology is noted. ASSESSMENT AND PLAN: A 63-year-old female with history of breast cancer, right leg swelling, history of depression, alcohol abuse, now admitted with right leg deep venous thrombosis and pulmonary emboli, found to have methicillin-resistant Staphylococcus aureus on nasal screen, currently on mupirocin treatment, would complete 5 days of therapy and we will continue mupirocin. Today is day #3, would complete 5 days of therapy. The patient is tolerating it well. Danis Lange MD
--- NOTE | 2018-04-16 16:01 | PN ---
DATE: 04/16/2018 PULMONARY PROGRESS NOTE REFERRING PHYSICIAN: Tony Mike MD. SUBJECTIVE: The patient is lying in the bed, had at 35 degrees. Night was unremarkable. Cough is better. Shortness of breath is improved. No nausea, vomiting, diarrhea, leg pain, leg swelling. OBJECTIVE: GENERAL: In no acute distress. VITAL SIGNS: Temperature is 98, heart rate 68, respiratory rate is 18, blood pressure 114/48, pulse ox 96% on room air. HEENT: Moist mucous membrane. Crowded airway. NECK: Supple. No JVD. LUNGS: Have a fair airflow with rhonchi. HEART: S1 and S2. ABDOMEN: Soft, nontender. EXTREMITIES: There is no edema. NEUROLOGICAL: Awake and alert. Follows simple command. MEDICATIONS: She is on Arimidex 1 mg daily, Bactroban ointment nasally twice a day, Cepacol lozenges every 2 hours p.r.n., DuoNeb every 6 hours p.r.n., Eliquis 10 mg twice a day, Lamictal 25 mg daily, Lexapro 20 mg daily, Protonix 40 mg daily, Robitussin p.r.n. basis, Tessalon Perles 200 mg three times a day, Tylenol p.r.n. basis. LABORATORY DATA: Shows no new lab is available since yesterday. IMPRESSION AND PLAN: Pulmonary embolism, deep venous thrombosis, history of breast cancer, gastroesophageal reflux disease, sleep apnea syndrome, depression. Pulmonary point of view, doing okay. Continue anticoagulation. Keep head at 45 degrees. Gastroesophageal reflux disease precaution. Sleep apnea precaution. Outpatient, will get CPAP. Thank you and we will follow with you. Sahil Barlow MD
--- NOTE | 2018-04-16 22:04 | PN ---
DATE: 04/16/2018 This is [facility]'s hospital visit on the telemetry floor. For Dr. Landry. SUBJECTIVE: The patient is a 63-year-old female, now on isolation due to MRSA positive nares swab with the patient's heparin now being discontinued in favor of 10 mg of Eliquis every 12 hours for 6 more days and then mentioned to cut back to 5 mg twice a day. She is otherwise feeling better with the patient tolerating medication change well. We plan for discharge tomorrow if she is stable. PHYSICAL EXAMINATION: VITAL SIGNS: Temperature 97.7, pulse 58, respirations 18, blood pressure 114/48, and pulse oximetry 96%. HEENT: Unremarkable. NECK: Supple. HEART: Regular rate. LUNGS: Clear, with rare rhonchi on the left. ABDOMEN: Soft. EXTREMITIES: No edema. SKIN: Warm and dry. NEUROLOGIC: Awake and alert. LABORATORY DATA: The patient's labs were done yesterday and will be repeated tomorrow morning as she is off of her heparin drip. ASSESSMENT: The assessment for this patient is that of bilateral pulmonary emboli, deep venous thrombosis, history of breast cancer, gastroesophageal reflux disease, methicillin-resistant Staphylococcus aureus nasal swab, history of thyroid nodules, depression, and obesity. PLAN: Plan for this patient is to continue present medical regimen. Plan for discharge home tomorrow with home needs to be addressed as per social workers with follow up in the office with Dr. Landry in the near future for Prolia dose for the patient's osteopenia/osteoporosis. She also continues on her Arimidex and Bactroban as per Dr. Lange, Infectious Disease. It should also be noted that the patient's cough has significantly improved. This may have been related to her PE bilateral. There is consideration for CPAP as per Dr. Barlow. This is a complex patient with a comprehensive medically necessary and appropriate visit carried out in excess of 20 minutes with the patient's questions answered to her satisfaction. Tony Mike MD
[2018-04-17 00:16] VITALS: O2SAT 95
[2018-04-17] MEDS: Pantoprazole 40 mg EC Tab PO SCH (05:30)
[2018-04-17 07:04] LABS: ALB/GLOB RATIO 1.3 (1.1-1.8); ALBUMIN 3.7 g/dL (3.0-4.8); ALT/SGPT 85 U/L (7-56); AST/SGOT 63 U/L (14-36); BLOOD UREA NITROGEN 12 mg/dL (7-21); CALCIUM 8.9 mg/dL (8.4-10.5); GFR NON-AFRICAN AMERICAN > 60
[2018-04-17 07:08] LABS: BASO # 0.05 K/mm3 (0.0-2.0); BASO % 0.9 % (0.0-3.0); EOS # 0.3 (0.0-0.7); EOS % 5.4 % (1.5-5.0); GRAN # 2.97 (1.4-6.5); GRAN % 53.9 % (50.0-68.0); HEMOGLOBIN 13.1 g/dL (12.0-16.0); LYMPH # 1.8 (1.2-3.4); LYMPH % 32.6 % (22.0-35.0); MEAN CELL VOLUME 91.8 fl (80.0-105.0); MEAN CORPUSCULAR HEMOGLOBIN 30.5 pg (25.0-35.0); MEAN CORPUSCULAR HGB CONC 33.2 g/dl (31.0-37.0); MONO # 0.4 (0.1-0.6); MONO % 7.2 % (1.0-6.0); RBC 4.29 10^6/uL (3.5-6.1); RED CELL DISTRIBUTION WIDTH 12.9 % (11.5-14.5); WHITE BLOOD COUNT 5.5 10^3/uL (4.5-11.0)
[2018-04-17] MEDS: Mupirocin 2% Ointment 15 GM TUBE NS SCH (09:00)
--- NOTE | 2018-04-17 10:11 | CP.PCM.DIS ---
Provider - Provider Date of Admission: 04/11/18 20:38 Attending physician: Tony Mike MD Primary care physician: Mario Landry MD Time Spent in preparation of Discharge (in minutes): 45 Diagnosis - Discharge Diagnosis (1) Breast cancer Status: Chronic Priority: High (2) Bilateral pulmonary embolism Status: Acute Priority: High (3) Deep vein blood clot of right lower extremity Status: Acute Priority: High Hospital Course - Lab Results Lab Results: Micro Results 04/12/18 03:00 Nose MRSA Culture (Admit) - Final 04/12/18 03:00 Urine,Clean Catch Urine Culture - Final No Growth (<1,000 CFU/ML) Most Recent Lab Values WBC 5.5 10^3/uL (4.5-11.0) 04/17/18 05:45 RBC 4.29 10^6/uL (3.5-6.1) 04/17/18 05:45 Hgb 13.1 g/dL (12.0-16.0) 04/17/18 05:45 Hct 39.4 % (36.0-48.0) 04/17/18 05:45 MCV 91.8 fl (80.0-105.0) 04/17/18 05:45 MCH 30.5 pg (25.0-35.0) 04/17/18 05:45 MCHC 33.2 g/dl (31.0-37.0) 04/17/18 05:45 RDW 12.9 % (11.5-14.5) 04/17/18 05:45 Plt Count 236 10^3/uL (120.0-450.0) 04/17/18 05:45 MPV 10.0 fl (7.0-11.0) 04/17/18 05:45 Gran % 53.9 % (50.0-68.0) 04/17/18 05:45 Lymph % (Auto) 32.6 % (22.0-35.0) 04/17/18 05:45 [place] % (Auto) 7.2 % (1.0-6.0) H 04/17/18 05:45 Eos % (Auto) 5.4 % (1.5-5.0) H 04/17/18 05:45 Baso % (Auto) 0.9 % (0.0-3.0) 04/17/18 05:45 Gran # 2.97 (1.4-6.5) 04/17/18 05:45 Lymph # (Auto) 1.8 (1.2-3.4) 04/17/18 05:45 [place] # (Auto) 0.4 (0.1-0.6) 04/17/18 05:45 Eos # (Auto) 0.3 (0.0-0.7) 04/17/18 05:45 Baso # (Auto) 0.05 K/mm3 (0.0-2.0) 04/17/18 05:45 PT 13.4 SECONDS (9.4-12.5) H 04/11/18 20:51 INR 1.17 04/11/18 20:51 APTT 69.0 Seconds (25.1-36.5) H 04/15/18 07:00 Factor V see note 04/11/18 21:24 Sodium 139 mmol/L (132-148) 04/17/18 05:45 Potassium 3.8 mmol/L (3.6-5.0) 04/17/18 05:45 Chloride 108 mmol/L (98-107) H 04/17/18 05:45 Carbon Dioxide 26 mmol/L (21-33) 04/17/18 05:45 Anion Gap 10 (10-20) 04/17/18 05:45 BUN 12 mg/dL (7-21) 04/17/18 05:45 Creatinine 0.9 mg/dl (0.7-1.2) 04/17/18 05:45 Est GFR ( Amer) > 60 04/17/18 05:45 Est GFR (Non-Af Amer) > 60 04/17/18 05:45 Random Glucose 88 mg/dL (70-110) 04/17/18 05:45 Calcium 8.9 mg/dL (8.4-10.5) 04/17/18 05:45 Total Bilirubin 0.4 mg/dL (0.2-1.3) 04/17/18 05:45 AST 63 U/L (14-36) H D 04/17/18 05:45 ALT 85 U/L (7-56) H 04/17/18 05:45 Alkaline Phosphatase 62 U/L (38-126) 04/17/18 05:45 Troponin I < 0.01 ng/mL 04/11/18 20:51 NT-Pro-B Natriuret Pep 33.4 pg/mL (0-450) 04/12/18 08:17 Total Protein 6.6 g/dL (5.8-8.3) 04/17/18 05:45 Albumin 3.7 g/dL (3.0-4.8) 04/17/18 05:45 Globulin 2.9 gm/dL 04/17/18 05:45 Albumin/Globulin Ratio 1.3 (1.1-1.8) 04/17/18 05:45 Urine Color Yellow (YELLOW) 04/11/18 22:59 Urine Appearance Sl cloudy (CLEAR) 04/11/18 22:59 Urine pH 6.0 (4.7-8.0) 04/11/18 22:59 Ur Specific [place] 1.025 (1.005-1.035) 04/11/18 22:59 Urine Protein Negative mg/dL (<30 mg/dL) 04/11/18 22:59 Urine Glucose (UA) Negative mg/dL (NEGATIVE) 04/11/18 22:59 Urine Ketones Negative mg/dL (NEGATIVE) 04/11/18 22:59 Urine Blood Negative (NEGATIVE) 04/11/18 22:59 Urine Nitrate Negative (NEGATIVE) 04/11/18 22:59 Urine Bilirubin Negative (NEGATIVE) 04/11/18 22:59 Urine Urobilinogen 0.2 E.U./dL (<1 E.U./dL) 04/11/18 22:59 Ur Leukocyte Esterase Trace Yusra/uL (NEGATIVE) H 04/11/18 22:59 Urine RBC Negative /hpf (0-2) 04/11/18 22:59 Urine WBC 0 - 2 /hpf (0-6) 04/11/18 22:59 Ur Epithelial Cells 6 - 8 /hpf (0-5) 04/11/18 22:59 Urine Bacteria Few (NEG) 04/11/18 22:59 Urine Other Mucus 04/11/18 22:59 - Hospital Course Hospital Course: Patient is a 63 year old female with a pmhx of breast cancer s/p right breast mastectomy, DVTs and PE who was admitted for evaluation and treatment of right lower extremity swelling. With the use of physical examinations, lab work, and imaging the patient was diagnosed with and treated for bilateral pulmonary embolisms and right lower extremity DVTs, in addition to her chronic conditions. During their hospital stay the patient was seen by pulmonology (Dr. Barlow), gastroenterology (Dr. Varghese), and infectious disease (Dr. Stevenson), cardiology (Dr. Antunez), and infectious disease (Dr. Lange) whose recommendations were reviewed, appreciated, and implemented in the patients care. During their hospital stay the patient underwent a chest CT, aorta ultrasound, and abdomen/pelvis CT which were reviewed, appreciated, and utilized in the management of the patients clinical course. The chest CT revealed lower lobe segmental branches pulmonary emboli. Abdomen/pelvis CT showed no evidence of acute pathology. Aorta ultrasound showed no sonographic evidence for deep venous thrombosis in the visualized segments of the IVC and iliac veins. During the hospital stay the patient treated with IV heparin, eliquis, anastrazole in addition to other empiric/therapeutic medications. Patient understands and appreciates discharge plan. Patient instructed to follow up with primary care physicians and referrals within one week from discharge. Furthermore the patient is instructed to take medications as prescribed and to return to emergency room for evaluation of new or worsening symptoms including but limited to dizziness, headache, visual/auditory changes, fever, chills, chest pain, SOB, abdominal pain, nausea, vomiting, diarrhea, constipation, and urinary symptoms. This is a brief summary of the patient hospital course. Please see patient chart for full details. Discharge Exam - Additional Findings Additional findings: - Constitutional Appears: Well, Non-toxic, No Acute Distress - Head Exam Head Exam: ATRAUMATIC, NORMAL INSPECTION, NORMOCEPHALIC - Eye Exam Eye Exam: EOMI, Normal appearance - Respiratory Exam Respiratory Exam: Clear to Auscultation Bilateral, NORMAL BREATHING PATTERN. absent: Accessory Muscle Use, Decreased Breath Sounds, Rales, Rhonchi, Wheezes, Respiratory Distress, Stridor - Cardiovascular Exam Cardiovascular Exam: RRR, +S1, +S2. absent: Gallop, Rubs, Systolic Murmur - GI/Abdominal Exam GI & Abdominal Exam: Normal Bowel Sounds, Soft. absent: Tenderness - Extremities Exam Extremities exam: right extremity minimal edema, Negative for: calf tenderness, tenderness - Back Exam Back exam: NORMAL INSPECTION. absent: CVA tenderness (L), CVA tenderness (R) - Neurological Exam Neurological exam: Alert, Oriented x3 - Psychiatric Exam Psychiatric exam: Normal Affect, Normal Mood - Skin Skin Exam: Dry, Intact, Normal Color, Warm Discharge Plan - Discharge Medications Prescriptions: Apixaban [Eliquis] 10 mg PO BID 7 Days #28 tab Apixaban [Eliquis] 5 mg PO BID 30 Days #60 tab Mupirocin Calcium [Bactroban Nasal] 1 gm NS DAILY 5 Days #1 oint...g. - Follow Up Plan Condition: FAIR Disposition: HOME/ ROUTINE Additional Instructions: Patient Instructions: 1. Please follow up with primary care physician and referrals (Dr. Varghese and Dr. Barlow) within 7 days from discharge 2. Please take medications as prescribed: you are started on eliquis 10mg orally twice daily for 7 days. On 04/25/2018 start eliquis 5mg orally twice daily for 30 days. Continue to use bactroban as instructed for 5 more days. 3. Please return to the emergency room for evaluation and treatment of new or worsening symptoms including but not limited to fever, chills, dizziness, headache, visual/auditory changes, chest pain, shortness of breath, abdominal pain, nausea, vomiting, diarrhea, constipation, and urinary symptoms. Referrals: Mario Landry MD [Primary Care Provider] - Al Varghese MD [Medical Doctor] - Sahil Barlow MD [Staff Provider] -
[2018-04-17 14:03] VITALS: BP 117/63; RESP 19; TEMP 98.4
[2018-04-17 17:22] VITALS: PULSE 73
--- NOTE | 2018-04-18 02:18 | PN ---
DATE: 04/17/2018 PULMONARY PROGRESS NOTE REFERRING PHYSICIAN: Tony Mike MD. SUBJECTIVE: She is getting ready to be discharged. Night was unremarkable. Feels better. No chest pain. No nausea, vomiting, or diarrhea. No leg pain or leg swelling. PHYSICAL EXAMINATION: GENERAL: In no acute distress. VITAL SIGNS: Temperature is 98, heart rate is 72, respiratory rate is 18, blood pressure 117/63, pulse of 95% on room air. HEENT: Moist mucous membrane. Crowded airway. Mallampati score is 4. NECK: Supple. No JVD. LUNGS: Have a fair airflow with rhonchi. ABDOMEN: Soft, nontender, no organomegaly. EXTREMITIES: There is no edema. NEUROLOGIC: Awake, alert, and follows simple command. MEDICATIONS: She is on Eliquis 10 mg twice a day for six more days and then change to 5 mg twice a day. No other change in medication reported. LABORATORY DATA: Shows hemoglobin 13.1, hematocrit 39.4, WBC 5.5, platelet is 236. Sodium 139, potassium 3.8, chloride 108, bicarbonate 26, BUN 12, creatinine 0.9, glucose 88, calcium is 8.9. AST 63, ALT 85, alk phos is 62. Albumin 3.7. Microbiology, urine culture, there is no growth. IMPRESSION AND PLAN: Pulmonary embolism, deep venous thrombosis, history of breast cancer, gastroesophageal reflux disease, sleep apnea syndrome, depression. Case discussed with Dr. Landry. Being discharged home on p.o. Eliquis 10 mg twice a day for 6 days and then 5 mg twice a day. Awaiting for CPAP as an outpatient to be started. Gastroesophageal reflux disease precaution. Continue antidepressive, bleeding precautions, spoke to the patient about anticoagulation and risks of bleed. She expressed understanding. Thank you and we will follow with you. Sahil Barlow MD
== END 2018-04-17 17:50 | disposition home or self-care (01) | DRG 176 ==
LOC: ED 20:06 → ERH 20:38 → 5RNO 04-12 00:47 → ICU 04-12 02:28 → 2RNO 04-13 10:40
PROVIDERS: ADMIT Family Medicine; ATTEND Family Medicine
DX: I26.99 Other pulmonary embolism without acute cor pulmonale (principal); I82.411 Acute embolism and thrombosis of right femoral vein; I82.431 Acute embolism and thrombosis of right popliteal vein; K21.9 Gastro-esophageal reflux disease without esophagitis; F32.9 Major depressive disorder, single episode, unspecified; G47.30 Sleep apnea, unspecified; E66.9 Obesity, unspecified; Z68.28 Body mass index [BMI] 28.0-28.9, adult; Z85.3 Personal history of malignant neoplasm of breast; Z90.11 Acquired absence of right breast and nipple; Z86.718 Personal history of other venous thrombosis and embolism; Z87.891 Personal history of nicotine dependence; Z80.3 Family history of malignant neoplasm of breast

== ENCOUNTER 2018-06-26 22:22 | Observation (INO) | payer BC ==
[2018-06-26 22:22] VITALS: BMI 28.6
--- NOTE | 2018-06-27 00:46 | ED PDOC ---
Arrival/HPI - General Chief Complaint: Lower Extremity Problem/Injury Time Seen by Provider: 06/26/18 22:41 Historian: Patient - History of Present Illness Narrative History of Present Illness (Text): 06/27/18 00:41 63 year old female, whose past medical history includes breast CA with right mastectomy, DVT and PE, presents to the emergency department with swelling to the right ankle/foot/leg.Patient was diagnosed with DVT and PE in March 2018, and was treated and subsequently discharged on Eliquis, which she is still taking. Patient denies any history of trauma. Patient denies any chest pain, shortness of breath, leg pain, back pain, or any other complaints.States the leg appears to have again slighty swelled. Time/Duration: Prior to Arrival Symptom Onset: Gradual Symptom Course: Unchanged Activities at Onset: Light Context: Home Past Medical History - Provider Review Nursing Documentation Reviewed: Yes - Infectious Disease Hx of Infectious Diseases: None - Cardiac Hx Pacemaker: No - Pulmonary Hx Sleep Apnea: Yes - Neurological Hx Paralysis: No - Hematological/Oncological Hx Blood Transfusions: No Hx Cancer: Yes (breast) - Musculoskeletal/Rheumatological Hx Musculoskeletal Disorders: No - Gastrointestinal Hx Gastroesophageal Reflux: Yes - Psychiatric Hx Depression: Yes Hx Emotional Abuse: No Hx Physical Abuse: No Hx Substance Use: No - Surgical History Hx Mastectomy: Yes (right) Hx Tonsillectomy: Yes - Anesthesia Hx Anesthesia: Yes Hx Anesthesia Reactions: Yes (ITCHING AFTER MASTECTOMY) Hx Malignant Hyperthermia: No - Suicidal Assessment Feels Threatened In Home Enviroment: No Family/Social History - Physician Review Nursing Documentation Reviewed: Yes Family/Social History: No Known Family HX Smoking Status: Former Smoker Hx Alcohol Use: No Hx Substance Use: No Allergies/Home Meds Allergies/Adverse Reactions: Allergies almonds Allergy (Uncoded 04/11/18 20:23) ITCHING Home Medications: Home Meds Medication Instructions Recorded Confirmed Escitalopram [Lexapro] 20 mg PO DAILY 02/27/14 04/17/18 RX: Omeprazole 40 mg PO DAILY 02/27/14 04/17/18 Cholecalciferol [Vitamin D 1000 IU] 1,000 intlu PO DAILY 04/12/18 04/12/18 Review of Systems - Physician Review All systems were reviewed & negative as marked: Yes - Review of Systems Respiratory: absent: SOB Cardiovascular: absent: Chest Pain Musculoskeletal: Joint Swelling (Right ankle). absent: Back Pain Physical Exam Vital Signs Reviewed: Yes Vital Signs Temp Pulse Resp BP Pulse Ox 06/26/18 23:40 98.6 F 79 18 114/62 100 Temperature: Afebrile Blood Pressure: Normal Pulse: Regular Respiratory Rate: Normal Appearance: Positive for: Well-Appearing, Non-Toxic, Comfortable Pain Distress: None Mental Status: Positive for: Alert and Oriented X 3 - Systems Exam Head: Present: Atraumatic, Normocephalic Pupils: Present: PERRL Extroacular Muscles: Present: EOMI Conjunctiva: Present: Normal Mouth: Present: Moist Mucous Membranes Neck: Present: Normal Range of Motion Respiratory/Chest: Present: Clear to Auscultation, Good Air Exchange. No: Respiratory Distress, Accessory Muscle Use Cardiovascular: Present: Regular Rate and Rhythm, Normal S1, S2. No: Murmurs Abdomen: No: Tenderness, Distention, Peritoneal Signs Back: Present: Normal Inspection Upper Extremity: Present: Normal Inspection. No: Cyanosis, Edema Lower Extremity: Present: Swelling (Swelling to right lower leg, larger compared to left; swelling to the right ankle/dorsum of foot), Neurovascularly Intact. No: Tenderness (no palpable tenderness) Neurological: Present: GCS=15, CN II-XII Intact, Speech Normal, Motor Func Grossly Intact, Normal Sensory Function Skin: Present: Warm, Dry, Normal Color. No: Rashes Psychiatric: Present: Alert, Oriented x 3, Normal Insight, Normal Concentration Medical Decision Making ED Course and Treatment: 06/27/18 00:49 Impression: 63 year old female presents with leg swelling Plan: -- CMP -- CBC, Platelets -- US lower ext -- Reassess and disposition Prior Visits: Notes and results from previous visits were reviewed Progress Notes: 06/27/18 04:[address] Landry, who recommends patient be kept for observation and further evaluation; requests Dr Jarrod Sanchez on consult - RAD Interpretation Radiology Orders: 06/27/18 00:10 DUPLEX LOWER EXTRM VEIN BILAT [US] Stat - Scribe Statement The provider has reviewed the documentation as recorded by the Scribe Jarrod Deleon Provider Scribe Attestation: All medical record entries made by the Scribe were at my direction and personally dictated by me. I have reviewed the chart and agree that the record accurately reflects my personal performance of the history, physical exam, medical decision making, and the department course for this patient. I have also personally directed, reviewed, and agree with the discharge instructions and disposition. Disposition/Present on Arrival - Present on Arrival Any Indicators Present on Arrival: No History of DVT/PE: Yes History of Uncontrolled Diabetes: No Urinary Catheter: No History of Decub. Ulcer: No History Surgical Site Infection Following: None - Disposition Have Diagnosis and Disposition been Completed?: Yes Diagnosis: Deep vein blood clot of right lower extremity, Right leg swelling Disposition: HOSPITALIZED Disposition Time: 04:42 Patient Plan: Observation Patient Problems: Current Active Problems Problem Status Onset Deep vein blood clot of right lower extremity Acute Right leg swelling Acute Condition: STABLE
[2018-06-27 00:54] LABS: HEMOGLOBIN 13.2 g/dL (12.0-16.0); MEAN CELL VOLUME 93.1 fl (80.0-105.0); MEAN CORPUSCULAR HEMOGLOBIN 31.6 pg (25.0-35.0); MEAN CORPUSCULAR HGB CONC 33.9 g/dl (31.0-37.0); RBC 4.18 10^6/uL (3.5-6.1); RED CELL DISTRIBUTION WIDTH 13.4 % (11.5-14.5); WHITE BLOOD COUNT 7.1 10^3/uL (4.5-11.0)
[2018-06-27 00:58] LABS: INR 1.39; PARTIAL THROMBOPLASTIN TIME 35.9 Seconds (26.9-38.3); PROTHROMBIN TIME 15.4 SECONDS (9.4-12.5)
[2018-06-27 01:02] LABS: ALB/GLOB RATIO 1.4 (1.1-1.8); ALT/SGPT 35 U/L (7-56); AST/SGOT 30 U/L (14-36); BLOOD UREA NITROGEN 17 mg/dL (7-21); CALCIUM 9.3 mg/dL (8.4-10.5); GFR NON-AFRICAN AMERICAN 56
--- NOTE | 2018-06-27 08:32 | CP.PCM.HP ---
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 She denies skin changes, pain, limitation in range of motion, sensation changes, temperature changes of the right leg. She denies shortness of breath. In 03/2018 she was diagnosed and treated for a right LE DVT and bilateral PE - she has been compliant with her eliquis 5mg po bid. In the ER a venous duplex was performed with preliminary results stating "partial DVT". PMHx: breast cancer s/p right breast mastectomy, DVT/PE, GERD, depression PSHx: mastectomy, tonsillectomy Home Meds: Lexepro 20 QD, Protonix 40 Allergiesl: NKDA SocialHx: Quit smoking 30 years ago, social etoh use, denies illicit drug use FamHx: Mom: breast ca, Sister: Breast ca, Factor V lieden deficiency Dad: Factor V lieden deficiency Present on Admission - Present on Admission Any Indicators Present on Admission: No Review of Systems - Review of Systems All systems: reviewed and no additional remarkable complaints except (as stated in the HPI) Past Patient History - Infectious Disease Hx of Infectious Diseases: None - Past Social History Smoking Status: Former Smoker - CARDIAC Hx Pacemaker: No - PULMONARY Hx Sleep Apnea: Yes - NEUROLOGICAL Hx Paralysis: No - HEMATOLOGICAL/ONCOLOGICAL Hx Blood Transfusions: No Hx Cancer: Yes (breast) - MUSCULOSKELETAL/RHEUMATOLOGICAL Hx Musculoskeletal Disorders: No - GASTROINTESTINAL Hx Gastroesophageal Reflux: Yes - PSYCHIATRIC Hx Depression: Yes Hx Emotional Abuse: No Hx Physical Abuse: No Hx Substance Use: No - SURGICAL HISTORY Hx Mastectomy: Yes (right) Hx Tonsillectomy: Yes - ANESTHESIA Hx Anesthesia: Yes Hx Anesthesia Reactions: Yes (ITCHING AFTER MASTECTOMY) Hx Malignant Hyperthermia: No Meds Allergies/Adverse Reactions: Allergies Allergy/AdvReac Type Severity Reaction Status Date / Time almonds Allergy ITCHING Uncoded 04/11/18 20:23 Physical Exam - Constitutional Appears: Well, Non-toxic, No Acute Distress - Head Exam Head Exam: ATRAUMATIC, NORMAL INSPECTION - Eye Exam Eye Exam: EOMI, Normal appearance, PERRL. absent: Scleral icterus - ENT Exam ENT Exam: Mucous Membranes Moist, Normal Oropharynx - Neck Exam Neck exam: Positive for: Normal Inspection. Negative for: Lymphadenopathy, Thyromegaly - Respiratory Exam Respiratory Exam: Clear to Auscultation Bilateral, NORMAL BREATHING PATTERN. absent: Accessory Muscle Use, Rales, Rhonchi, Wheezes - Cardiovascular Exam Cardiovascular Exam: REGULAR RHYTHM, +S1, +S2. absent: Bradycardia, Tachycardia, JVD, Systolic Murmur - GI/Abdominal Exam GI & Abdominal Exam: Normal Bowel Sounds, Soft. absent: Distended, Tenderness - Extremities Exam Extremities exam: Positive for: full ROM, joint swelling, normal capillary refill, pedal edema, pedal pulses present. Negative for: calf tenderness, tenderness Additional comments: very mild non-pitting edema around right ankle joint - Neurological Exam Neurological exam: Alert, Oriented x3 - Psychiatric Exam Psychiatric exam: Normal Affect, Normal Mood - Skin Skin Exam: Dry, Intact, Normal Color, Warm Results - Vital Signs Recent Vital Signs: Last Vital Signs Temp 98.6 F 06/26/18 23:40 Pulse 68 06/27/18 08:13 Resp 18 06/27/18 08:13 BP 98/55 L 06/27/18 08:13 Pulse Ox 96 06/27/18 08:13 - Labs Result Diagrams: 06/27/18 00:35 06/27/18 00:35 Labs: Laboratory Results - last 24 hr 06/27/18 06/27/18 06/27/18 00:35 00:35 00:35 WBC 7.1 D RBC 4.18 Hgb 13.2 Hct 38.9 MCV 93.1 MCH 31.6 MCHC 33.9 RDW 13.4 Plt Count 246 MPV 10.0 PT 15.4 H INR 1.39 APTT 35.9 Sodium 138 Potassium 3.8 Chloride 104 Carbon Dioxide 25 Anion Gap 13 BUN 17 Creatinine 1.0 Est GFR ( Amer) > 60 Est GFR (Non-Af Amer) 56 Random Glucose 120 H Calcium 9.3 Total Bilirubin 0.4 AST 30 ALT 35 Alkaline Phosphatase 57 Total Protein 6.8 Albumin 4.0 Globulin 2.8 Albumin/Globulin Ratio 1.4 Assessment & Plan - Assessment and Plan (Free Text) Plan: Mrs Huerta is a 63 year old female with a PMHx of breast cancer (s/p mastectomy and in remission since 2013), 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 Compared with march 2018 there has been interval improvement. The patient should remain on anticoagulation and use a grade 1 compression stocking for swelling for post-phlebitic symptoms. No sonographic evidence for deep venous thromb osis in visualized segments of left lower extremity. -continue home med eliquis 5mg po bid Hx of Breast Cancer -continue home med anastrozole 1mg po qd Hx of PE -obtain repeat chest CT to ensure resolution of PE from 03/2018 - this can be done outpatient GERD -protonix 40mg po qd Depression -continue home med lexapro 25mg po qd PPX -protonix 40mg po qd and eliquis 5mg po bid Seen and discussed with Dr Landry
--- NOTE | 2018-06-27 10:12 | US ---
HISTORY: Leg pain and swelling. Evaluate for DVT PHYSICIAN(S): Jarrod Sanchez MD. TECHNIQUE: Duplex sonography and color-flow Doppler with graded compression were used to evaluate the deep venous systems of both lower extremities. FINDINGS: There are partially recannulized post phlebitic changes noted in the right femoral vein. Compared with the previous study in March, there has been interval improvement. No new thrombus is seen. The right common femoral vein is normal and compressible. The right popliteal vein and visualized tibial veins are patent and compressible. There is no sonographic evidence for deep venous thrombosis the visualized segments of left lower extremity IMPRESSION: Partially recannulized, post phlebitic changes in the right femoral vein. Compared with March, there has been interval improvement. The patient should remain on anticoagulation and use a grade 1 compression stocking for swelling or post phlebitic symptoms. No sonographic evidence for deep venous thrombosis in the visualized segments of left lower extremity
[2018-06-27 11:11] VITALS: O2SAT 99
[2018-06-27 11:13] VITALS: PULSE 70; RESP 20; TEMP 97.9
[2018-06-27 11:16] VITALS: BP 98/66
--- NOTE | 2018-06-27 13:48 | CP.PCM.DIS ---
Provider - Provider Date of Admission: 06/27/18 04:44 Attending physician: Tony Mike MD Primary care physician: Tony Mike MD Consults: 06/27/18 04:45 Physician Consult Stat Comment: Consulting Provider: Jarrod Sanchez Consulting Physician: Jarrod Sanchez Reason for Consult: Right Leg/ankle /foot swelling/Hx DVT Time Spent in preparation of Discharge (in minutes): 40 Diagnosis - Discharge Diagnosis (1) Right leg swelling Status: Resolved Priority: High (2) Breast cancer Status: Chronic Priority: High Hospital Course - Lab Results Lab Results: Most Recent Lab Values WBC 7.1 10^3/uL (4.5-11.0) D 06/27/18 00:35 RBC 4.18 10^6/uL (3.5-6.1) 06/27/18 00:35 Hgb 13.2 g/dL (12.0-16.0) 06/27/18 00:35 Hct 38.9 % (36.0-48.0) 06/27/18 00:35 MCV 93.1 fl (80.0-105.0) 06/27/18 00:35 MCH 31.6 pg (25.0-35.0) 06/27/18 00:35 MCHC 33.9 g/dl (31.0-37.0) 06/27/18 00:35 RDW 13.4 % (11.5-14.5) 06/27/18 00:35 Plt Count 246 10^3/uL (120.0-450.0) 06/27/18 00:35 MPV 10.0 fl (7.0-11.0) 06/27/18 00:35 PT 15.4 SECONDS (9.4-12.5) H 06/27/18 00:35 INR 1.39 06/27/18 00:35 APTT 35.9 Seconds (26.9-38.3) 06/27/18 00:35 Sodium 138 mmol/L (132-148) 06/27/18 00:35 Potassium 3.8 mmol/L (3.6-5.0) 06/27/18 00:35 Chloride 104 mmol/L (98-107) 06/27/18 00:35 Carbon Dioxide 25 mmol/L (21-33) 06/27/18 00:35 Anion Gap 13 (10-20) 06/27/18 00:35 BUN 17 mg/dL (7-21) 06/27/18 00:35 Creatinine 1.0 mg/dl (0.7-1.2) 06/27/18 00:35 Est GFR ( Amer) > 60 06/27/18 00:35 Est GFR (Non-Af Amer) 56 06/27/18 00:35 Random Glucose 120 mg/dL (70-110) H 06/27/18 00:35 Calcium 9.3 mg/dL (8.4-10.5) 06/27/18 00:35 Total Bilirubin 0.4 mg/dL (0.2-1.3) 06/27/18 00:35 AST 30 U/L (14-36) 06/27/18 00:35 ALT 35 U/L (7-56) 06/27/18 00:35 Alkaline Phosphatase 57 U/L (38-126) 06/27/18 00:35 Total Protein 6.8 g/dL (5.8-8.3) 06/27/18 00:35 Albumin 4.0 g/dL (3.0-4.8) 06/27/18 00:35 Globulin 2.8 gm/dL 06/27/18 00:35 Albumin/Globulin Ratio 1.4 (1.1-1.8) 06/27/18 00:35 - Hospital Course Hospital Course: Mrs Huerta is a 63 year old female with a PMHx of breast cancer (s/p mastectomy and in remission since 2013), 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 She denies skin changes, pain, limitation in range of motion, sensation changes, temperature changes of the right leg. She denies shortness of breath. In 03/2018 she was diagnosed and treated for a right LE DVT and bilateral PE - she has been compliant with her eliquis 5mg po bid. In the ER a venous duplex was performed with preliminary results stating "partial DVT". 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 Compared with march 2018 there has been interval improvement. The patient should remain on anticoagulation and use a grade 1 compression stocking for swelling for post-phlebitic symptoms. No sonographic evidence for deep venous thrombosis in visualized segments of left lower extremity. -continue home med eliquis 5mg po bid Hx of Breast Cancer -continue home med anastrozole 1mg po qd Hx of PE -obtain repeat chest CT to ensure resolution of PE from 03/2018 - this can be done outpatient GERD -protonix 40mg po qd Depression -continue home med lexapro 25mg po qd PPX -protonix 40mg po qd and eliquis 5mg po bid Seen and discussed with Dr Landry Discharge Exam - Head Exam Head Exam: ATRAUMATIC, NORMAL INSPECTION - Additional Findings Additional findings: - Constitutional Appears: Well, Non-toxic, No Acute Distress - Head Exam Head Exam: ATRAUMATIC, NORMAL INSPECTION - Eye Exam Eye Exam: EOMI, Normal appearance, PERRL. absent: Scleral icterus - ENT Exam ENT Exam: Mucous Membranes Moist, Normal Oropharynx - Neck Exam Neck exam: Positive for: Normal Inspection. Negative for: Lymphadenopathy, Thyromegaly - Respiratory Exam Respiratory Exam: Clear to Auscultation Bilateral, NORMAL BREATHING PATTERN. absent: Accessory Muscle Use, Rales, Rhonchi, Wheezes - Cardiovascular Exam Cardiovascular Exam: REGULAR RHYTHM, +S1, +S2. absent: Bradycardia, Tachycardia, JVD, Systolic Murmur - GI/Abdominal Exam GI & Abdominal Exam: Normal Bowel Sounds, Soft. absent: Distended, Tenderness - Extremities Exam Extremities exam: Positive for: full ROM, joint swelling, normal capillary refill, pedal edema, pedal pulses present. Negative for: calf tenderness, tenderness Additional comments: very mild non-pitting edema around right ankle joint - Neurological Exam Neurological exam: Alert, Oriented x3 - Psychiatric Exam Psychiatric exam: Normal Affect, Normal Mood - Skin Skin Exam: Dry, Intact, Normal Color, Warm Discharge Plan - Follow Up Plan Condition: STABLE Disposition: HOME/ ROUTINE Additional Instructions: Follow-up with Dr Landry in his office within 2 weeks Continue to wear grade 1 compression stockings - please go to Dr Jarrod Sanchez's office for re-adjustment of stocking so they fit better Continue all current home medications including eliquis 5mg by mouth morning and night Please have a CT of your chest done outpatient (you already have a script for this) If symptoms return please go to your nearest emergency department. Referrals: Tony Mike MD [Primary Care Provider] - Jarrod Sanchez MD [Staff Provider] -
== END 2018-06-27 16:20 | disposition home or self-care (01) ==
LOC: ED 22:22 → ERH 06-27 04:44 → 5RNO 06-27 11:25
PROVIDERS: ADMIT Family Medicine; ATTEND Family Medicine
DX: M79.89 Other specified soft tissue disorders (principal); Z85.3 Personal history of malignant neoplasm of breast; F32.89 Other specified depressive episodes; G47.30 Sleep apnea, unspecified; K21.9 Gastro-esophageal reflux disease without esophagitis; Z79.01 Long term (current) use of anticoagulants; Z86.711 Personal history of pulmonary embolism; Z86.718 Personal history of other venous thrombosis and embolism; Z87.891 Personal history of nicotine dependence; Z90.11 Acquired absence of right breast and nipple; Z80.3 Family history of malignant neoplasm of breast; Z91.018 Allergy to other foods
CPT/HCPCS: 80053; 85027; 85610; 85730; 93970; 99285; G0378

== ENCOUNTER 2018-06-30 13:53 | Outpatient (CLI) | payer BC | END 2018-06-30 13:54 | disposition home or self-care (01) | LOC: RAD 13:53 ==

== ENCOUNTER 2018-08-22 20:01 | Emergency (ER) | payer BC ==
[2018-08-22 20:18] VITALS: BMI 33.3
[2018-08-22] MEDS ORDERED: Albuterol-Ipratrop 3 mg / 0.5 (3 ml) UD IH STA (21:35)
[2018-08-22] MEDS ORDERED: guaiFENesin 200 mg/10 ml Syrup UD PO ONE (21:35)
--- NOTE | 2018-08-22 22:35 | ED PDOC ---
Arrival/HPI - General Chief Complaint: Cough, Cold, Congestion Time Seen by Provider: 08/22/18 20:17 Historian: Patient - History of Present Illness Narrative History of Present Illness (Text): 08/22/18 21:35 A 63 year old female, whose past medical history includes breast cancer in remission and prior DVTPE on eliquis, presents to the emergency room complaining of cough and rhinorrhia for the past 4 days. Patient reports positive for sick contacts and denies any fever, chest pain, shortness of breath, recent travel, or any other complaints. PMD/Oncologist: Dr. Landry Time/Duration: < week (4 days) Symptom Onset: Gradual Symptom Course: Unchanged Activities at Onset: Light Context: Home Past Medical History - Provider Review Nursing Documentation Reviewed: Yes - Infectious Disease Hx of Infectious Diseases: None - Cardiac Hx Pacemaker: No - Pulmonary Hx Respiratory Disorders: Yes Hx Sleep Apnea: Yes - Neurological Hx Paralysis: No - HEENT Hx HEENT Disorder: Yes (glasses) - Renal Hx Renal Disorder: No - Endocrine/Metabolic Hx Endocrine Disorders: No - Hematological/Oncological Hx Blood Disorders: Yes Hx Cancer: Yes (breast) - Musculoskeletal/Rheumatological Hx Musculoskeletal Disorders: No - Gastrointestinal Hx Gastrointestinal Disorders: Yes Hx Gastroesophageal Reflux: Yes - Psychiatric Hx Psychophysiologic Disorder: Yes Hx Depression: Yes Hx Emotional Abuse: No Hx Physical Abuse: No Hx Substance Use: No - Surgical History Hx Mastectomy: Yes (right) Hx Tonsillectomy: Yes Other/Comment: bilateral bunionectomy - Anesthesia Hx Anesthesia: Yes Hx Anesthesia Reactions: Yes (ITCHING AFTER MASTECTOMY) Hx Malignant Hyperthermia: No - Suicidal Assessment Feels Threatened In Home Enviroment: No Family/Social History - Physician Review Nursing Documentation Reviewed: Yes Family/Social History: No Known Family HX Smoking Status: Former Smoker Hx Alcohol Use: No Hx Substance Use: No Allergies/Home Meds Allergies/Adverse Reactions: Allergies almonds Allergy (Uncoded 08/22/18 20:18) ITCHING Home Medications: Home Meds Medication Instructions Recorded Confirmed Escitalopram [Lexapro] 25 mg PO DAILY 02/27/14 08/22/18 Cholecalciferol [Vitamin D 1000 IU] 1,000 intlu PO DAILY 04/12/18 08/22/18 Albuterol Sulfate [Proair Hfa] 8.5 gm IH PRN PRN 06/27/18 08/22/18 Anastrozole [Arimidex] 1 mg PO DAILY 06/27/18 08/22/18 traZODone [trazODONE HYDROCHLORIDE] 50 mg PO HS 06/27/18 08/22/18 Esomeprazole Magnesium [Nexium 20 mg PO DAILY 08/22/18 08/22/18 24Hr] buPROPion XL [Wellbutrin XL] 1 tab PO POSTTR 08/22/18 08/22/18 Review of Systems - Physician Review All systems were reviewed & negative as marked: Yes - Review of Systems Constitutional: absent: Fatigue ENT: Rhinorrhea Respiratory: Cough. absent: SOB Cardiovascular: absent: Chest Pain Physical Exam Vital Signs Reviewed: Yes Vital Signs Temp Pulse Resp BP Pulse Ox 08/22/18 20:44 98.3 F 81 20 111/37 L 97 Temperature: Afebrile Blood Pressure: Hypertensive Pulse: Regular Respiratory Rate: Normal Mental Status: Positive for: Alert and Oriented X 3 - Systems Exam Head: Present: Atraumatic, Normocephalic Pupils: Present: PERRL Extroacular Muscles: Present: EOMI Conjunctiva: Present: Normal Mouth: Present: Moist Mucous Membranes Neck: Present: Normal Range of Motion Respiratory/Chest: Present: Clear to Auscultation, Good Air Exchange. No: Respiratory Distress, Accessory Muscle Use Cardiovascular: Present: Regular Rate and Rhythm, Normal S1, S2. No: Murmurs Abdomen: No: Tenderness, Distention, Peritoneal Signs Back: Present: Normal Inspection Upper Extremity: Present: Normal Inspection. No: Cyanosis, Edema Lower Extremity: Present: Normal Inspection. No: Edema Neurological: Present: GCS=15, CN II-XII Intact, Speech Normal Skin: Present: Warm, Dry, Normal Color. No: Rashes Psychiatric: Present: Alert, Oriented x 3, Normal Insight, Normal Concentration Medical Decision Making ED Course and Treatment: 08/22/18 21:35 Previous medical records reviewed, patient had an a CT of the chest on June 2018 which showed no acute findings. Impression: 63 year ol d female presenting to the emergency room complaining of cough and rhinorrhia. Plan: -- Chest X-ray -- Duoneb -- Robitussin -- Reassess and disposition Prior Visits: Notes and results from previous visits were reviewed. Progress Notes: Influenza negative CXR : NAD, as read by PA On reevaluation, patient denies any chest pain or SOB. On exam, patient remains awake alert and oriented 3 in no acute distress. Diagnostic results discussed with the patient, diagnosis of bronchitis discussed with the patient. Advised to follow up with primary care physician in 1-2 days without fail. Advised to take medication as prescribed. Return to the emergency room at any time for any new or worsening symptoms. Patient states she fully agrees with and understands discharge instructions. States that she agrees with the plan and disposition. Verbalized and repeated discharge instructions and plan. I have given the patient opportunity to ask any additional questions. - RAD Interpretation Radiology Orders: 08/22/18 21:35 CHEST TWO VIEWS (PA/LAT) [RAD] Stat - Medication Orders Current Medication Orders: Discontinued Medications Albuterol/Ipratropium (Duoneb 3 Mg/0.5 Mg (3 Ml) Ud) 3 ml IH STAT STA Stop: 08/22/18 21:36 Last Admin: 08/22/18 21:48 Dose: 3 ml Guaifenesin (Robitussin) 200 mg PO ONCE ONE Stop: 08/22/18 21:36 Last Admin: 08/22/18 21:48 Dose: 200 mg - PA / FURNACE CONVERTER / Resident Statement MD/DO has reviewed & agrees with the documentation as recorded. - Scribe Statement The provider has reviewed the documentation as recorded by the Vaibhav Almeida All medical record entries made by the Stariboumou were at my direction and personally dictated by me. I have reviewed the chart and agree that the record accurately reflects my personal performance of the history, physical exam, medical decision making, and the department course for this patient. I have also personally directed, reviewed, and agree with the discharge instructions and disposition. Disposition/Present on Arrival - Present on Arrival Any Indicators Present on Arrival: Yes History of DVT/PE: Yes History of Uncontrolled Diabetes: No Urinary Catheter: No History of Decub. Ulcer: No History Surgical Site Infection Following: None - Disposition Have Diagnosis and Disposition been Completed?: Yes Diagnosis: Acute bronchitis Disposition: HOME/ ROUTINE Disposition Time: 22:30 Patient Plan: Discharge Condition: STABLE Discharge Instructions (ExitCare): Acute Bronchitis, Adult (DC) Additional Instructions: Thank you for letting us take care of you today. You were treated for acute bronchitis. The emergency medical care you received today was directed at your acute symptoms. If you were prescribed any medication, please fill it and take as directed. It may take several days for your symptoms to resolve. Return to the Emergency Department if your symptoms worsen, do not improve, or if you have any other problems. Please contact your doctor in 2 days for re-evaluation and follow up. Bring any paperwork you were given at discharge with you along with any medications you are taking to your follow up visit. Our treatment cannot replace ongoing medical care by a primary care provider (PCP) outside of the emergency department. Thank you for allowing the [facility] team to be part of your care today. If you had an X-Ray : A Radiologist will review the ED reading if any change in treatment is needed we will contact you. Prescriptions: Albuterol 0.083% [Albuterol Sulfate 3 Ml] 3 ml IH Q4 #100 neb Guaifenesin 400 mg PO QID #20 tablet Forms: [employer] ([employer]), WORK NOTE
[2018-08-22 22:50] VITALS: BP 105/68; PULSE 74; RESP 17; TEMP 98.2; O2SAT 98
--- NOTE | 2018-08-23 09:54 | RAD ---
Date of service: 08/22/2018 HISTORY: Cough COMPARISON: CTA chest from 04/11/2018. TECHNIQUE: Chest PA and lateral FINDINGS: LINES AND TUBES: None. LUNG AND PLEURA: The lungs are well inflated and clear. No pleural effusion or pneumothorax. HEART AND MEDIASTINUM: The heart is not enlarged. No aortic atherosclerotic calcifications present. The hilar and mediastinal contours are within normal limits. SKELETAL STRUCTURES: The bony structures are within normal limits for the patient's age. VISUALIZED UPPER ABDOMEN: Normal. OTHER FINDINGS: There are surgical clips in the right axilla. IMPRESSION: No active pulmonary disease.
== END 2018-08-22 22:49 | disposition home or self-care (01) ==
LOC: ED 20:01
DX: J20.9 Acute bronchitis, unspecified (principal); Z87.891 Personal history of nicotine dependence

== ENCOUNTER 2018-08-23 09:47 | Outpatient (CLI) | payer BC | END 2018-08-23 09:48 | disposition home or self-care (01) | LOC: RAD 09:47 ==